=== PATIENT | male | born 1955 | race Caucasian/White ===

== ENCOUNTER 2017-12-13 18:04 | Observation (INO) | payer BC ==
[2017-12-13 18:28] LABS: ABS Basophils 0.1 10^3/ul (0-0.2); ABS Eosinophils 0.2 10^3/ul (0-0.6); ABS Lymphocytes 1.3 10^3/ul (1.0-4.8); ABS Monocytes 0.4 10^3/ul (0-0.8); ABS Neutrophils 2.5 10^3/ul (1.5-7.7); ABS Nucleated RBC 0 10^3/ul; Eosinophil % 5.4 % (0-6); Hematocrit 46 % (42-52); Hemoglobin 15.4 g/dl (14.0-18.0); Lymphocyte % 29.2 % (25-47); Mean Corpuscular HGB Conc 34 g/dl (31-36); Mean Corpuscular Hemoglobin 29 pg (27-31); Mean Corpuscular Volume 85 fL (80-94); Mean Platelet Volume 8.4 um3 (7.4-10.4); Nucleated Red Blood Cells % 0; Platelet Count 163 10^3/ul (150-450); Red Blood Count 5.42 10^6/ul (4.00-5.40); Red Cell Distribution Width 16 % (10.5-15); White Blood Count 4.5 10^3/ul (3.5-10.8)
[2017-12-13 18:50] LABS: EGFR Non-African American 47.7 (>60)
--- NOTE | 2017-12-13 20:39 | RAD ---
INDICATION: Chest pain COMPARISON: Chest x-ray March 24, 2003 TECHNIQUE: Single AP portable view of the chest was obtained. FINDINGS: Image quality is compromised due to the relative inferiority of a portable chest x-ray. The heart and mediastinum exhibit normal size and contour. The lungs are grossly clear. There is no evidence of a large pleural effusion. Visualized bones are normal for the patient's age. IMPRESSION: No radiographic evidence for acute cardiopulmonary abnormality on this portable chest x-ray.
--- NOTE | 2017-12-13 21:19 | ED ---
Deana Duarte Simon, scribed for Kera Dockery MD on 12/13/17 at 2116 . HPI Chest Pain - HPI Summary HPI Summary: This patient is a 62 year old M presenting to [facility] with a chief complaint of intermittent CP with exertion for the past 2-3 weeks, but noted worse sx today. Pt was push mowing his lawn at easy pace and experienced heavy pressure. He endorses similar but less severe sx while walking on weekend of 12/09/17 in [facility]. Pt denies any sx/endorses sx resolution at rest. Pt denies SOB, sweats, lightheaded, radiation during the episode. Pt denies any sx currently. PMHx [place] 2002; he had 1 stent placed in an artery with a 90 % blockage. In 2008 pt endorsed another stent placed, as well as an issue with 1st stent (tissue gathered around the original stent). Dr. Chavarria is pts vice president for instruction, who administered pts last stress test September 2016. Pt takes simvastatin, metoprolol , baby ASA (taken today), plavix, metforim, insulin. Pt denies any missed doses. Pt described sx of his 2002 VA as CP with radiations in waves down left arm. Patients medications reviewed this visit. - History of Current Complaint Chief Complaint: EDChestPainROMI Time Seen by Provider: 12/13/17 20:34 Hx Obtained From: Patient Onset/Duration: Started Hours Ago, Resolved Timing: Intermittent, Lasting Minutes Initial Severity: Moderate Current Severity: None Pain Intensity: 0 Pain Scale Used: 0-10 Numeric Chest Pain Location: Upper Sternal Chest Pain Radiates: No Character: Pressure/Squeezing Aggravating Factor(s): Exertion Alleviating Factor(s): Rest Associated Signs and Symptoms: Positive: Chest Pain. Negative: Shortness of Breath, Diaphoresis Related History: Similar Episode/Dx as: - exertion from walking weekend of . less severe - Allergy/Home Medications Allergies/Adverse Reactions: Allergies Allergy/AdvReac Type Severity Reaction Status Date / Time No Known Allergies Allergy Verified 12/13/17 18:16 Home Medications: Home Medications Aspirin EC TAB* [Ecotrin EC Low Dose 81 MG*] 81 mg PO QAM 12/13/17 [History Confirmed 12/13/17] Dapagliflozin Propanediol [Farxiga] 10 mg PO DAILY 12/13/17 [History Confirmed 12/13/17] Liraglutide (NF) [Victoza (NF)] 1.8 mg SUBCUT DAILY 12/13/17 [History Confirmed 12/13/17] Simvastatin (NF) [Zocor (NF)] 40 mg PO QPM 12/13/17 [History Confirmed 12/13/17] PMH/Surg Hx/FS Hx/Imm Hx Previously Healthy: Yes Endocrine/Hematology History: Reports: Hx Diabetes - TYPE II Cardiovascular History: Reports: Hx Coronary Artery Disease - HIGH CHOLESTEROL; 3 STENTS [id number], Hx Myocardial Infarction - 2002, Other Cardiovascular Problems/Disorders - [employer]ER[employer] - 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 MCCAIN Denies: Hx Hypertension, Hx Pacemaker/ICD History: Reports: Hx Kidney Stones - NONE IN THE 5-6 YEARS Denies: Hx Renal Disease Sensory History: Denies: Hx Contacts or Glasses, Hx Hearing Aid Opthamlomology History: Denies: Hx Contacts or Glasses EENT History: Denies: Hx Deafness Psychiatric History: Denies: Hx Panic Disorder - Surgical History Surgery Procedure, Year, and Place: 2002-- STENTS (CARDIAC) - [facility] IN [facility]. 2009- STENT(CARDIAC) [facility]. 2004 CYSTOSCOPY, LEFT RETROGRADE, URETEROSCOPY, LEFT CALCULUS MANIPULATION, STENT INSERTION, [facility]. 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 EOM intact and full ENT: Hearing grossly normal TM x 2 clear, mmoist, uvula midline, no exudate, no erythema Neck: Positive: Supple Respiratory: Positive: No respiratory distress, No accessory muscle use + CTA throughout no w/r Cardiovascular: RRR nl s1, s2 no m/r CBT <2 sec abd soft + BS nt/nd no guarding, no distension Musculoskeletal Exam: BORRERO x 4 without difficulty Strength Intact, ROM Intact Neurological: Positive: Alert, + sensation throughout Psychological: Positive: Normal Response To Family Skin: Positive: no rash, no ecchymosis Triage Information Reviewed: Yes Vital Signs On Initial Exam: Initial Vitals Temp Pulse Resp BP Pulse Ox 98.0 F 86 14 146/86 97 12/13/17 18:13 12/13/17 18:13 12/13/17 18:13 12/13/17 18:13 12/13/17 18:13 Diagnostics - Vital Signs Vital Signs Temp Pulse Resp BP Pulse Ox 12/13/17 18:13 98.0 F 86 14 146/86 97 - Laboratory Lab Results: Lab Results 12/13/17 12/13/17 12/13/17 Range/Units 18:23 18:23 18:23 WBC 4.5 (3.5-10.8) 10^3/ul RBC 5.42 H (4.00-5.40) 10^6/ul Hgb 15.4 (14.0-18.0) g/dl Hct 46 (42-52) % MCV 85 (80-94) fL MCH 29 (27-31) pg MCHC 34 (31-36) g/dl RDW 16 H (10.5-15) % Plt Count 163 (150-450) 10^3/ul MPV 8.4 (7.4-10.4) um3 Neut % (Auto) 55.1 (38-83) % Lymph % (Auto) 29.2 (25-47) % Henderson % (Auto) 9.1 H (0-7) % Eos % (Auto) 5.4 (0-6) % Baso % (Auto) 1.2 (0-2) % Absolute Neuts (auto) 2.5 (1.5-7.7) 10^3/ul Absolute Lymphs (auto) 1.3 (1.0-4.8) 10^3/ul Absolute Monos (auto) 0.4 (0-0.8) 10^3/ul Absolute Eos (auto) 0.2 (0-0.6) 10^3/ul Absolute Basos (auto) 0.1 (0-0.2) 10^3/ul Absolute Nucleated RBC 0 10^3/ul Nucleated RBC % 0 Sodium 136 (135-145) mmol/L Potassium 4.3 (3.5-5.0) mmol/L Chloride 102 (101-111) mmol/L Carbon Dioxide 24 (22-32) mmol/L Anion Gap 10 (2-11) mmol/L BUN 22 (6-24) mg/dL Creatinine 1.50 H (0.67-1.17) mg/dL Est GFR ( Amer) 57.8 (>60) Est GFR (Non-Af Amer) 47.7 (>60) BUN/Creatinine Ratio 14.7 (8-20) Glucose 326 H (70-100) mg/dL Lactic Acid 1.3 (0.5-2.0) mmol/L Calcium 9.6 (8.6-10.3) mg/dL Total Bilirubin 0.40 (0.2-1.0) mg/dL AST 23 (13-39) U/L ALT 15 (7-52) U/L Alkaline Phosphatase 83 (34-104) U/L Troponin I 0.01 (<0.04) ng/mL Total Protein 7.4 (6.4-8.9) g/dL Albumin 4.4 (3.2-5.2) g/dL Globulin 3.0 (2-4) g/dL Albumin/Globulin Ratio 1.5 (1-3) Result Diagrams: 12/15/17 05:39 12/15/17 05:39 Lab Statement: Any lab studies that have been ordered have been reviewed, and results considered in the medical decision making process. - Radiology CXR Xray Interpretation: No Acute Changes - No radiographic evidence for acute cardiopulmonary abnormality on this portable xray. Dr. Dockery has reviewed this radiographic report. Radiology Interpretation Completed By: Radiologist - EKG 1800 Cardiac Rate: NL - 82 EKG Rhythm: Sinus Rhythm EKG Interpretation: Inverted T-wave in leads III, AVF. No acute changes. EKG Comparison: No Significant Change Chest Pain Course/Dx - Course Course Of Treatment: Pt with 2 epsidoes od exertional chest pressure -resolved with rest. no current pain. once with walking, once with mowing lawn. no other syx - no nausea, sob, diaphoresis. pt with a h/o CAD with stent, htn, dm , chol. Last stress 09/2016. Pt took ASA. EKG without acute process. will check trop. if neg - admits for serial trop and cards. pt in agreement with plan - Diagnoses Provider Diagnoses: Exertional chest pain - Provider Notifications Discussed Care Of Patient With: Maty Ramos - Accepted admission Time Discussed With Above Provider: 21:05 Instructed by Provider To: Admit As Inpatient Discharge - Sign-Out/Discharge Documenting (check all that apply): Discharge/Admit/Transfer - Discharge Plan Condition: Stable Disposition: ADMITTED TO [facility] - Billing Disposition and Condition Condition: STABLE Disposition: Admitted to [facility] The documentation as recorded by the Deana bashir Simon accurately reflects the service I personally performed and the decisions made by , Kera Dockery MD.
[2017-12-13] MEDS ORDERED: Acetaminophen TAB* 325 MG PO PRN (21:47)
[2017-12-13] MEDS ORDERED: Ondansetron 40 MG VIAL* 2 MG/ML 20 ML VIAL IV PRN (21:47)
[2017-12-13] MEDS ORDERED: Morphine VIAL* 4 MG/ML VIAL (1 ml vial) IV PRN (21:47)
[2017-12-13] MEDS ORDERED: Al Hydrox/Mg Hydrox/Simet LIQ* 30 ML UDC PO PRN (21:47)
[2017-12-13] MEDS ORDERED: Magnesium Hydroxide LIQ* 30 ML UDC PO PRN (21:47)
[2017-12-13] MEDS ORDERED: Insulin GLARGINE(*) 1 UNITS UNIT SUBCUT SCH (22:00)
[2017-12-13] MEDS ORDERED: Dextrose 50% Syringe 50 ML* 25 GM/50 ML SYRINGE IV PUSH PRN (22:00)
[2017-12-13] MEDS: amLODIPine TAB* 5 MG PO SCH (22:13)
[2017-12-13] MEDS: Metoprolol Tartrate TAB* 25 MG PO SCH (22:13)
[2017-12-13] MEDS ORDERED: Nitroglycerin TAB 0.4 MG* 0.4 MG TAB SL PRN (22:32)
[2017-12-14] MEDS: Insulin LISPRO* 1 UNITS UNIT SUBCUT SCH ×3 (01:03→14:00)
[2017-12-14] MEDS: NS 0.9% 1000 ML* 1,000 ML IV SCH ×3 (01:04→21:53)
--- NOTE | 2017-12-14 04:58 | HP ---
CC: Dr. Robert Ron; Dr. Wili Nava; Dr. Alonso Madrigal * ADMISSION HISTORY AND PHYSICAL: DATE OF ADMISSION: 12/13/17 PATIENT OF: Dr. Maty Ramos* (DICTATED BY MAGGIE PIZANO) PRIMARY CARE PHYSICIAN: Dr. Robert Ron PRIMARY ROPE CUTTER: Dr. Wili Nava. CHIEF COMPLAINT: Chest pain. HISTORY OF PRESENT ILLNESS: Mr. Ruiz is a pleasant 62-year-old gentleman who carries past medical history significant for hypertension, hyperlipidemia, coronary artery disease, and type 2 diabetes mellitus, with a prior history of cardiac catheterization back in 2002 and 2009 with stent placement on both occasions, who presented to the emergency room earlier today with complaints of intermittent chest discomfort with exertion for the past few weeks. The patient described being in his usual state of health until the past few weeks when he experienced some chest tightness on and off, usually with exertion. He was mowing the grass the other day and noticed some left-sided chest pain with some numbness and tingling radiating to his left arm. He stopped and went inside for a little rest, and eventually the pain went away. He was on a tour bus last week in [facility] and he was walking around outdoors when he noticed increased chest tightness as well, again resolved at rest. He denied any shortness of breath, diaphoresis, lightheadedness, or any other associated symptoms. He was mowing his grass with a push mower and he was going at a very reasonable pace, and he was not rushing to finish it when he experienced some heavy pressure today. He took one tablet of Nitro and he noticed that pain eventually resolved. Given his significant history of coronary artery disease and his recurrent episodes of angina, we were asked to see the patient for further evaluation and to discuss possible admission to telemetry unit. During his ED visit today, patient had troponin of 0.01 initially. His EKG showed some inferior lead ST changes consistent with old infarct. I could not recall any old EKG at this time that was done at the cardiology office. He appeared to be comfortable at the time of admission. He has been maintained on aspirin, Plavix, and metoprolol since his initial cardiac catheterization back in 2002. In addition, he denies any headaches, blurred vision or any other associated symptoms. PAST MEDICAL HISTORY: Significant for: 1. Hypertension. 2. Coronary artery disease. 3. Diabetes mellitus type 2 for which he has been insulin-dependent, and he tells me that his last hemoglobin A1c check, which he is required to do at [facility] in [place], was 6.5. 4. Hyperlipidemia. PAST SURGICAL HISTORY: As mentioned above significant for: 1. Cardiac catheterization with two stents placed in 2002 at [place], [place], and another cardiac catheterization done in [place] in 2009 with two stents placed as well as. 2. Right hand ganglion cyst excision x2. CURRENT MEDICATIONS: His medications at home include: 1. Aspirin 81 mg p.o. q. daily. 2. Plavix 75 mg p.o. q. daily. 3. Farxiga 10 mg tablets p.o. q. daily. 4. Glipizide 10 mg p.o. b.i.d. 5. Lantus insulin 22 units subcu q. p.m. 6. Victoza 1.8 mg subcu q. daily. 7. Cozaar 50 mg p.o. q.h.s. 8. Metformin 2000 mg p.o. b.i.d. 9. Metoprolol 50 mg p.o. b.i.d. 10. Actos 30 mg p.o. q. daily. 11. Zocor 40 mg p.o. q.h.s. ALLERGIES: He has no known drug allergies. FAMILY HISTORY: Significant for diabetes mellitus, hypertension, and history of myocardial infarction in both his parents. 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 He has never smoked, and he denies alcohol intake. He denies illicit drug use. He is for the last 14 years. His son, Marquise, would be the healthcare proxy carrier; however, patient informed me that he does not have any paperwork to assign his son for such duty. He is a full code. REVIEW OF SYSTEMS: See HPI; otherwise, 14 points review of systems were reviewed and were essentially negative. PHYSICAL EXAMINATION GENERAL: He is an extremely pleasant, healthy-appearing, 62-year-old gentleman in no acute distress or discomfort at the time of admission. VITAL SIGNS: Revealed a blood pressure of 161/101, pulse 84, temperature 98.0, respirations 19, with O2 sat 99%. HEENT: Head is normocephalic, atraumatic. Sclerae anicteric, PERRLA, EOM's intact. Oropharynx is pink, moist, with no exudate. NECK: Supple. Trachea midline. No cervical adenopathy or thyromegaly. LUNGS: Clear to auscultation bilaterally. HEART: Regular rate and rhythm. Normal S1 and S2 without rubs, murmurs or gallops. BACK: Normal curvature, no CVA tenderness. ABDOMEN: Soft, nontender and nondistended. No hernias, masses or hepatosplenomegaly. EXTREMITIES: Without cyanosis, clubbing or edema. RECTAL: Exam deferred at this time. NEUROLOGIC: Grossly intact. DIAGNOSTIC STUDIES/LAB DATA: CBC with white count of 4500, hemoglobin 15.4, hematocrit 46, and platelets 163. Chemistry with sodium 136, potassium 4.3, chloride 102, CO2 of 24, BUN 22, and creatinine 1.5. His glucose elevated at 326, lactic acid 1.3. Troponin first draw at 6:23 p.m. is 0.01, second draw at 2113 is 0.04, and third draw is due shortly after midnight and not available at time of dictation. ACCESSORY DIAGNOSTIC DATA: Chest x-ray done, revealing no acute disease. EKG reviewed, revealing possible old infarct at the inferior leads. No other EKGs available at this time for comparison. ASSESSMENT: A 62-year-old gentleman with past medical history significant for coronary artery disease, who had two cardiac catheterizations with two stents placed both occasions, with also history of hypertension, diabetes mellitus, and hyperlipidemia who presented to the emergency room with intermittent anginal chest pain with exertion. ASSESSMENT AND PLAN: 1. Chest pain. The patient will be admitted for observation in the telemetry unit. We will obtain trending troponin and reevaluate him in the morning. I have discussed the case with Dr. Madrigal, the candlemaking laborer engineering production liaison, regarding the option of repeating his stress test tomorrow versus proceeding to the catheterization lab knowing his history of coronary artery disease. The patient is clinically stable, and he has experienced no chest pain since presentation to the emergency room. Recommendation from cardiology is to increase his metoprolol dose to 75 mg b.i.d., start him on Norvasc as well as at 2.5 mg q. daily, to hold his Plavix tonight, and keep him n.p.o. in anticipation for nuclear stress test tomorrow, and to discuss possible cardiac catheterization if indicated. I have discussed these plans with the patient who appears to be in agreement. 2. Hypertension. We will continue the patient on his metoprolol, start him on Norvasc given his hypertensive episode on admission, and also we will continue his losartan. 3. Diabetes mellitus. We will continue his coverage with Lantus for tonight, and the patient will be covered with sliding scale with glucose checks every 6 hours while he is n.p.o. I will hold his metformin and glipizide for the time being. 4. Hyperlipidemia. We will continue patient on simvastatin. 5. Coronary artery disease. The patient will be admitted to tele and need to rule out acute coronary syndrome. He will be closely monitored in a telemetry unit, we will continue his aspirin, and we will hold his Plavix tonight per cardiology for possible intervention tomorrow. 6. DVT prophylaxis. The patient is a moderate risk, and we will keep sequential stocking device on for now. 7. Code status. The patient is a full code. 8. Disposition. Observation admission to telemetry to rule out acute coronary syndrome. TIME SPENT: I spent approximately 60 minutes admitting this patient with more than 50% of the time spent taken history and performing physical exam. I have discussed the case with my attending, Dr. Ramos, who appears to be in agreement and we will plan on cardiac consultation in the morning and follow him up accordingly. MAGGIE PIZANO [id number]/[facility] #: [id number] [place]
--- NOTE | 2017-12-14 08:59 | PN ---
Subjective - Subjective Reason for Note: Progress Note History: I reviewed with Ruiz Ruiz his presentation and also read the history and physical prepared by MAGGIE Woodall. He has had central chest discomfort on mild exertion for a few weeks, this was particularly pronounced yesterday while he was mowing the lawn. He presented to the ED and was found to have a slightly elevated troponin I level. He has had x 2 cardiac catheterizations previously with stent placement. He has multiple risk factors for CAD. He states the pain doesn't radiate, it is not associated with nausea/vomiting or diaphoresis. He has had no associated shortness of breath, palpitations or edema. He has otherwise been well. His recent assessment at the [facility] showed the best A1c on record. He has had no symptoms overnight and telemetry has shown sinus rhythm Active Problems: Active Problems Angina of effort (Acute) I20.8 Coronary artery disease (Acute) I25.10 Essential hypertension (Acute) I10 History of coronary artery stent placement (Acute) Z95.5 Hypercholesterolemia (Acute) E78.00 Troponin I above reference range (Acute) R74.8 Type 2 diabetes mellitus (Acute) Current Medications: Current Medications Acetaminophen (Tylenol Tab*) 650 mg PO Q4H PRN PRN Reason: FEVER/PAIN Al Hydrox/Mg Hydrox/Simethicone (Maalox Plus*) 30 ml PO Q6H PRN PRN Reason: INDIGESTION Amlodipine Besylate (Norvasc Tab*) 2.5 mg PO DAILY [facility] Last Admin: 12/13/17 22:13 Dose: 2.5 mg Aspirin (Aspirin Ec Tab*) 81 mg PO QAM [facility] Atorvastatin Calcium (Lipitor*) 20 mg PO QPM [facility] Dextrose (D50w Syringe 50 Ml*) 12.5 gm IV PUSH .FOR FS < 60 - SS PRN PRN Reason: FS < 60 Sodium Chloride (Ns 0.9% 1000 Ml*) 1,000 mls @ 100 mls/hr IV PER RATE [facility] Last Admin: 12/14/17 01:04 Dose: 100 mls/hr Insulin Glargine (Lantus(*)) 22 units SUBCUT QPM [facility] Last Admin: 12/13/17 22:20 Dose: 22 unit Insulin Human Lispro (Humalog*) 0 units SUBCUT Q6HR [facility]; Protocol Last Admin: 12/14/17 06:05 Dose: Not Given Losartan Potassium (Cozaar Tab*) 50 mg PO QPM [facility] Magnesium Hydroxide (Milk Of Magnesia Liq*) 30 ml PO Q4H PRN PRN Reason: CONSTIPATION Metoprolol Tartrate (Lopressor Tab*) 75 mg PO BID [facility] Last Admin: 12/13/17 22:13 Dose: 75 mg Morphine Sulfate (Morphine Vial*) 2 mg IV Q4H PRN PRN Reason: PAIN Nitroglycerin (Nitroglycerin Tab 0.4 Mg*) 0.4 mg SL Q5M PRN PRN Reason: ANGINA Ondansetron HCl (Zofran 40 Mg Vial*) 4 mg IV Q4H PRN PRN Reason: NAUSEA/VOMITING Home Medications: Home Medications Medication Instructions Recorded Confirmed Type Clopidogrel TAB* [Plavix TAB*] 75 mg PO QPM 09/19/12 12/13/17 History Losartan TAB* [Cozaar TAB*] 50 mg PO QPM 09/19/12 12/13/17 History Metoprolol Tartrate TAB* 50 mg PO BID 09/19/12 12/13/17 History [Lopressor TAB*] glipiZIDE TAB* [Glucotrol TAB*] 10 mg PO BID 09/19/12 12/13/17 History metFORMIN* [Glucophage*] 2,000 mg PO BID 09/19/12 12/13/17 History Insulin Glargine,Hum.rec.anlog 22 unit SUBCUT QPM 04/01/16 12/13/17 History [Lantus] Pioglitazone TAB* [Actos TAB*] 30 mg PO QAM 04/01/16 12/13/17 History Aspirin EC TAB* [Ecotrin EC Low 81 mg PO QAM 12/13/17 12/13/17 History Dose 81 MG*] Dapagliflozin Propanediol [Farxiga] 10 mg PO DAILY 12/13/17 12/13/17 History Liraglutide (NF) [Victoza (NF)] 1.8 mg SUBCUT DAILY 12/13/17 12/13/17 History Simvastatin (NF) [Zocor (NF)] 40 mg PO QPM 12/13/17 12/13/17 History Allergies: Allergies Allergy/AdvReac Type Severity Reaction Status Date / Time No Known Allergies Allergy Verified 12/13/17 18:16 Objective - Vital Signs Vital Signs: Vital Signs 12/13/17 12/13/17 12/13/17 18:13 20:15 20:16 Temperature 98.0 F Pulse Rate 86 82 Respiratory 14 17 15 Rate Blood Pressure 146/86 161/94 (mmHg) O2 Sat by Pulse 97 99 Oximetry 12/13/17 12/13/17 12/13/17 20:31 21:00 21:01 Temperature Pulse Rate 75 77 80 Respiratory 6 15 19 Rate Blood Pressure 133/99 171/104 (mmHg) O2 Sat by Pulse 98 97 99 Oximetry 12/13/17 12/13/17 12/13/17 21:31 22:00 22:01 Temperature Pulse Rate 77 79 78 Respiratory 25 12 11 Rate Blood Pressure 161/101 152/96 (mmHg) O2 Sat by Pulse 96 96 95 Oximetry 12/13/17 12/13/17 12/14/17 22:31 22:56 00:51 Temperature 98.0 F 97.3 F Pulse Rate 81 74 71 Respiratory 19 18 16 Rate Blood Pressure 156/101 156/101 155/71 (mmHg) O2 Sat by Pulse 96 95 98 Oximetry 12/14/17 07:55 Temperature 98.5 F Pulse Rate 68 Respiratory 16 Rate Blood Pressure 107/68 (mmHg) O2 Sat by Pulse 98 Oximetry - Intake and Output Intake and Output: Intake & Output 12/11/17 12/12/17 12/13/17 12/14/17 11:59 11:59 11:59 11:59 Intake Total 0 Balance 0 Weight 210 lb 11.2 oz Intake: Oral 0 Other: # Bowel Movements 0 ADLs: Meal Record Start: 12/13/17 23: 33 Freq: DAILY@0900,1400,1800 Status: Active Protocol: Created 12/13/17 23:33 System (Rec: 12/13/17 23:33 System [id number]) Intake and Output Start: 12/13/17 18: 16 Freq: Status: Active Protocol: Created 12/13/17 18:16 System (Rec: 12/13/17 18:16 System [id number]) Intake and Output Start: 12/13/17 23: 33 Freq: DAILY@0600,1400,2200 Status: Active Protocol: Created 12/13/17 23:33 System (Rec: 06/20/18 23:33 System [email or web address]) Document 12/14/17 06:00 [id number] (Rec: 12/14/17 06:34 [id number]) - Physical Exam General Physical Exam Comment: warm and well perfused and in no acute distress. Foot examination - good self-care - no ulcers, callouses or infections General: No Cyanosis, No Anemia, No Jaundice, No Clubbing Endocrine: No Central Obesity, No Acromegaly, No Vitiligo, No Flushing, No Acanthosis nigricans, No Violaceious striae, No Dax Syndrome, No Buccal pigmenatation, No Melchor Crease Pigmentation Lungs and Chest: Yes: Chest Expansion Full, Chest Expansion Symetrica, Percussion Note Resonant, Vessicular Breath Sounds. No: Crackles, Wheezes Heart Rate and Rhythm: Regular JVP: Not Elevated Additional Cardiovascular: Yes: Normal Heart Sounds. No: Heart Murmur, Pedal Edema Abdominal Exam: Yes: Soft, Bowel Sounds Present. No: Distention, Abdominal Mass , Hepatomegaly, Abdominal Tenderness - Extremities Cranial Nerves II-XII Intact: Yes Limbs: Normal Power - Neuro Orientation: A/O x3 Speech: Normal Results - Results Lab Results: Laboratory Results - last 24 hr 12/13/17 12/13/17 12/13/17 18:23 18:23 18:23 WBC 4.5 RBC 5.42 H Hgb 15.4 Hct 46 MCV 85 MCH 29 MCHC 34 RDW 16 H Plt Count 163 MPV 8.4 Neut % (Auto) 55.1 Lymph % (Auto) 29.2 Humphreys % (Auto) 9.1 H Eos % (Auto) 5.4 Baso % (Auto) 1.2 Absolute Neuts (auto) 2.5 Absolute Lymphs (auto) 1.3 Absolute Monos (auto) 0.4 Absolute Eos (auto) 0.2 Absolute Basos (auto) 0.1 Absolute Nucleated RBC 0 Nucleated RBC % 0 Sodium 136 Potassium 4.3 Chloride 102 Carbon Dioxide 24 Anion Gap 10 BUN 22 Creatinine 1.50 H Est GFR ( Amer) 57.8 Est GFR (Non-Af Amer) 47.7 BUN/Creatinine Ratio 14.7 Glucose 326 H POC Glucose (mg/dL) Lactic Acid 1.3 Calcium 9.6 Total Bilirubin 0.40 AST 23 ALT 15 Alkaline Phosphatase 83 Troponin I 0.01 Total Protein 7.4 Albumin 4.4 Globulin 3.0 Albumin/Globulin Ratio 1.5 Triglycerides Cholesterol LDL Cholesterol HDL Cholesterol 12/13/17 12/14/17 12/14/17 21:13 00:34 00:45 WBC RBC Hgb Hct MCV MCH MCHC RDW Plt Count MPV Neut % (Auto) Lymph % (Auto) Humphreys % (Auto) Eos % (Auto) Baso % (Auto) Absolute Neuts (auto) Absolute Lymphs (auto) Absolute Monos (auto) Absolute Eos (auto) Absolute Basos (auto) Absolute Nucleated RBC Nucleated RBC % Sodium Potassium Chloride Carbon Dioxide Anion Gap BUN Creatinine Est GFR ( Amer) Est GFR (Non-Af Amer) BUN/Creatinine Ratio Glucose POC Glucose (mg/dL) 219 H Lactic Acid Calcium Total Bilirubin AST ALT Alkaline Phosphatase Troponin I 0.04 H* 0.07 H* Total Protein Albumin Globulin Albumin/Globulin Ratio Triglycerides Cholesterol LDL Cholesterol HDL Cholesterol 12/14/17 12/14/17 04:58 05:47 WBC RBC Hgb Hct MCV MCH MCHC RDW Plt Count MPV Neut % (Auto) Lymph % (Auto) Humphreys % (Auto) Eos % (Auto) Baso % (Auto) Absolute Neuts (auto) Absolute Lymphs (auto) Absolute Monos (auto) Absolute Eos (auto) Absolute Basos (auto) Absolute Nucleated RBC Nucleated RBC % Sodium Potassium Chloride Carbon Dioxide Anion Gap BUN Creatinine Est GFR ( Amer) Est GFR (Non-Af Amer) BUN/Creatinine Ratio Glucose POC Glucose (mg/dL) 109 H Lactic Acid Calcium Total Bilirubin AST ALT Alkaline Phosphatase Troponin I 0.07 H* Total Protein Albumin Globulin Albumin/Globulin Ratio Triglycerides 233 Cholesterol 125 LDL Cholesterol 54 HDL Cholesterol 24.9 Radiology Results: Patient Name: RUIZ RUIZ Medical Record#: [id number] Ordering Physician: Kera Dockery MD Acct.#: [id number] : 1955 Age: 62 Sex: M Location: EMERGENCY DEPARTMENT Exam Date: 12/13/171812 ADM Status: REG ER Order Information: CHEST AP PORTABLE Accession Number: [id number] CPT: 53967 INDICATION: Chest pain COMPARISON: Chest x-ray March 24, 2003 TECHNIQUE: Single AP portable view of the chest was obtained. FINDINGS: Image quality is compromised due to the relative inferiority of a portable chest x-ray. The heart and mediastinum exhibit normal size and contour. The lungs are grossly clear. There is no evidence of a large pleural effusion. Visualized bones are normal for the patient's age. IMPRESSION: No radiographic evidence for acute cardiopulmonary abnormality on this portable chest x-ray. <Electronically signed by Gil Lopez MD in OV> 12/13/172034 Dictated By: Gil Lopez MD Dictated Date/Time: 12/13/172034 Transcribed Date/Time: 12/13/172034 Copy to: CC:Robert Ron MD; Kera Dockery MD Imaging - [facility] Imaging - [place] [address] [facility] [address] [address] ph ([phone]) ph ([phone]) ph ([phone]) 1 of EKG Report: Rate 64 CO 171 QTc 450 QRS axis 14. Old IWMI. Assessment - Problem List Assessment: Patient Problems Angina of effort (Acute) Coronary artery disease (Acute) Essential hypertension (Acute) History of coronary artery stent placement (Acute) Hypercholesterolemia (Acute) Troponin I above reference range (Acute) Type 2 diabetes mellitus (Acute) Plan: Angina of effort (Acute)Coronary artery disease (Acute)Angina of effort (Acute) He gives a clear history of worsening angina pectoris. He has not had this at rest. His troponin I levels are mildly elevated. He requires further risk stratification with a stress test, but likely will have a cardiac catheterization as he provides such a clear history. He understands the process Essential hypertension (Acute) This was intially mildly elevated, now controlled Hypercholesterolemia (Acute) continue current Rx Type 2 diabetes mellitus (Acute) Continue usual treatment as covered by pharmacy - with some coverage as needed I discussed the above with the patient and he agrees with the management plan. We are awaiting his next troponin I measurement before he can have a stress test.
[2017-12-14] MEDS: Aspirin EC TAB* 81 MG TAB.EC PO SCH (09:43)
[2017-12-14] MEDS: amLODIPine TAB* 5 MG PO SCH (09:47)
[2017-12-14] MEDS ORDERED: Heparin DRIP 25,000 UNITS(*) 25,000 UNITS/500 ML BAG IV SCH (10:00)
[2017-12-14] MEDS: Heparin VIAL(*) 5000 UNITS/ML VIAL (FIVE THOUSAND) IV PRN ×2 (11:08→23:07)
[2017-12-14 11:28] LABS: ABS Basophils 0 10^3/ul (0-0.2); ABS Eosinophils 0.2 10^3/ul (0-0.6); ABS Lymphocytes 1.4 10^3/ul (1.0-4.8); ABS Monocytes 0.4 10^3/ul (0-0.8); ABS Neutrophils 2.9 10^3/ul (1.5-7.7); ABS Nucleated RBC 0 10^3/ul; Eosinophil % 4.3 % (0-6); Hematocrit 43 % (42-52); Hemoglobin 14.4 g/dl (14.0-18.0); Lymphocyte % 28.4 % (25-47); Mean Corpuscular HGB Conc 34 g/dl (31-36); Mean Corpuscular Hemoglobin 28 pg (27-31); Mean Corpuscular Volume 84 fL (80-94); Mean Platelet Volume 8.6 um3 (7.4-10.4); Nucleated Red Blood Cells % 0.1; Platelet Count 156 10^3/ul (150-450); Red Blood Count 5.07 10^6/ul (4.00-5.40); Red Cell Distribution Width 16 % (10.5-15)
[2017-12-14 11:36] LABS: EGFR Non-African American 56.8 (>60)
[2017-12-14] MEDS: Metoprolol Tartrate TAB* 25 MG PO SCH ×3 (12:19→20:46)
[2017-12-14] MEDS ORDERED: Clopidogrel TAB* 75 MG ONE (12:40)
--- NOTE | 2017-12-14 13:34 | RAD ---
INDICATION: Chest pain COMPARISON: None TECHNIQUE: . Rest images were acquired following the intravenous injection of 10.2 millicuries of technetium 99m tetrofosmin. Exercise stress images were acquired following the intravenous administration of 25.8 millicuries of technetium 99m tetrofosmin. The patient was exercised to a peak heart rate of 123 which is 77% of age predicted maximum. Given the low level of exercise tolerance, reversal ischemia may be underestimated. FINDINGS: There are no defects of the stress-induced or fixed nature. The cardiac chamber size is normal. There are no wall motion abnormalities. The ejection fraction is calculated at 53 percent during stress. IMPRESSION: NO ISCHEMIC DEFECT IS SEEN BUT THERE IS A LOW LEVEL OF EXERCISE TOLERANCE WHICH MAY AND REST MAY DISEASE. LOW-NORMAL EJECTION FRACTION. ASSESSMENT: LOW-RISK Based on imaging criteria from ACC/AHA 2002 Guideline Update for the Management of Patients With Chronic Stable Angina Table 23. Noninvasive Risk Stratification. Reference. HIGH-RISK (GREATER THAN 3% ANNUAL MORTALITY RATE) - Severe resting left ventricular dysfunction (LVEF < 35%) - Severe exercise left ventricular dysfunction (exercise LVEF < 35%) - Stress-induced large perfusion defect (particularly if anterior) - Stress-induced multiple perfusion defects of moderate size - Large, fixed perfusion defect with LV dilation or increased lung uptake (thallium-201) - Stress-induced moderate perfusion defect with LV dilation or increased lung uptake (thallium-201) INTERMEDIATE-RISK (1%-3% ANNUAL MORTALITY RATE) - Mild/moderate resting left ventricular dysfunction (LVEF = 35% to 49%) - Stress-induced moderate perfusion defect without LV dilation or increased lung intake (thallium-201) LOW-RISK (LESS THAN 1% ANNUAL MORTALITY RATE) - Normal or small myocardial perfusion defect at rest or with stress
--- NOTE | 2017-12-14 13:47 | PN ---
Hospitalist Progress Note Date of Service: 12/14/17 Patient's P[address] is Dr[address] Robert Ron who has seen the patient today. Will sign off.
--- NOTE | 2017-12-14 15:17 | ECHO ---
Patient: BRENDAN DANG Rec#: [id number] : 1955 Date: 12/14/2017 Age: 62y Height: 182.88 cm / 72.0 in Weight: 95.25 kg / 209.9 lbs Sex: M BSA: 2.17 Room#: 433 Admit Date#: 12/13/2017 Type: Inpatient Referring: Luis Fernando Mcwilliams MD Reading: Luis Fernando Mcwilliams MD Physical Therapy Resident: Alma Rascon,RDCS,RDMS CC: Robert Ron MD Transthoracic Echocardiogram Indication: CP BP: 121/74 HR: 73 Rhythm: NSR Findings History: CAD, PCI, HTN, HLD, DM Technical Comments: The study quality is good. Left Ventricle: The left ventricular chamber size is normal. Mild concentric left ventricular hypertrophy is observed. The estimated ejection fraction is 55-60%. Abnormal left ventricular diastolic filling is observed, consistent with impaired relaxation. Left Atrium: The left atrium is mildly dilated. Right Ventricle: The right ventricular chamber size and systolic function are within normal limits. The right ventricle wall thickness is mildly increased. Right Atrium: The right atrial cavity size is normal. Aortic Valve: The aortic valve is trileaflet. Systolic excursion of the aortic valve is normal. There is no evidence of aortic regurgitation. There is no evidence of aortic stenosis. Mitral Valve: The mitral valve leaflets appear normal. There is mild mitral regurgitation. There is no evidence of mitral stenosis. Tricuspid Valve: The tricuspid valve leaflets are normal. There is trace tricuspid regurgitation. Unable to estimate the right ventricular systolic pressure. Pulmonic Valve: There is no evidence of pulmonic valve thickening. There is a trace pulmonic regurgitation. Pericardium: There is no significant pericardial effusion. Aorta: There is borderline dilatation of the ascending aorta. There is no dilatation of the aortic arch. The aortic root is normal in size. Pulmonary Artery: The main pulmonary artery appears normal. Venous: The inferior vena cava is dilated. There is a greater than 50% respiratory change in the inferior vena cava dimension. Summary: There was not any prior study for comparison. Conclusions The left ventricular chamber size is normal. Mild concentric left ventricular hypertrophy is observed. The estimated ejection fraction is 55-60%, borderline basal septal hypokinesis. Abnormal left ventricular diastolic filling is observed, consistent with impaired relaxation. The left atrium is mildly dilated. There is mild mitral regurgitation. There is trace tricuspid regurgitation. Unable to estimate the right ventricular systolic pressure. There is borderline dilatation of the ascending aorta. Measurements Name Value Normal Range RVIDd (AP) 2D 2.5 cm (0.9 - 2.6) RVDdMajor (2D) 2.7 cm (2.2 - 4.4) RAd ISD 4CH 4.7 cm (3.4 - 4.9) RA (A4C)W 3.9 cm (2.9 - 4.6) IVSd (2D) 1.4 cm (0.6 - 1) LVPWd (2D) 1.2 cm (0.6 - 1) LVIDd (2D) 4 cm (3.6 - 5.4) LVIDs (2D) 2.4 cm - LV FS (2D) 40 % (25 - 45) Aortic Annulus 2.3 cm (1.4 - 2.6) Ao root diameter (2D) 3.4 cm (2.1 - 3.5) Ascending Ao 3.5 cm (2.1 - 3.4) Aortic arch 3.4 cm (1.8 - 3.4) LA dimension (AP) 2D 3.9 cm (2.3 - 3.8) LAd ISD 4CH 5.9 cm (2.9 - 5.3) LA ISD 4CH W 4.9 cm (2.5 - 4.5) Name Value Normal Range LA ESV SP 4CH (A/L) 72.38 ml - LA ESV SP 2CH (A/L) 77.18 ml - LA ESV BP (A/L) 78.08 ml - LA ESV BP (A/L) index 36 ml/m2 - LA ESV SP 4CH (MOD) 66.71 ml - LA ESV SP 2CH (MOD) 70.39 ml - Name Value Normal Range MV E-wave Vmax 0.7 m/sec - MV deceleration time 200 msec - MV A-wave Vmax 0.7 m/sec - MV E:A ratio 1 ratio - P. vein S-wave Vmax 0.4 m/sec - P. vein D-wave Vmax 0.3 m/sec - P. vein S:D Vmax ratio 1.2 ratio - P. vein A-wave duration 107 msec - LV septal e' Vmax 0.09 m/sec - LV lateral e' Vmax 0.1 m/sec - LV E:e' septal ratio 8 ratio - LV E:e' lateral ratio 7 ratio - Name Value Normal Range AV Vmax 1 m/sec - AV VTI 22 cm - AV peak gradient 4 mmHg - AV mean gradient 2 mmHg - LVOT Vmax 0.8 m/sec - LVOT VTI 18.3 cm - LVOT peak gradient 2.8 mmHg - LVOT mean gradient 1.5 mmHg - MARCIN Vmax 0.6 m/sec - Name Value Normal Range RAP 8 mmHg - IVC diameter 2.5 cm - Name Value Normal Range PV Vmax 0.8 m/sec - PV peak gradient 2.6 mmHg -
[2017-12-14] MEDS ORDERED: diPHENhydraMINE PO* 25 MG PO PRN (15:19)
[2017-12-14] MEDS ORDERED: Diazepam TAB(*) 5 MG PO PRN (15:19)
[2017-12-14] MEDS ORDERED: Insulin GLARGINE(*) 1 UNITS UNIT SUBCUT SCH ×2 (18:00)
[2017-12-14] MEDS ORDERED: Losartan TAB* 25 MG PO SCH (18:00)
[2017-12-14] MEDS ORDERED: Atorvastatin* 20 MG TAB PO SCH (18:00)
--- NOTE | 2017-12-14 21:18 | CONS ---
CC: Dr. Nava; Dr. Ron; Hospitalist Service; Dr. Mcwilliams.* CARDIOLOGY CONSULT: DATE OF CONSULT: 12/14/17 HISTORY OF PRESENT ILLNESS: I was asked by hospitalist service to see this 62- year- old male patient who presented to the hospital with symptoms of chest pain and found to have indeterminate borderline troponin peaked at 0.07. The patient with known significant history of severe coronary artery disease, history of myocardial infarction in 2002. At that time, he was found to have 90 % stenosis of the OM1 of the left circ and the RCA was occluded with a thrombus. He underwent stent to the proximal RCA 3 x 33 mm as well as to the distal RCA. He also had a stent to the OM of the left circ 2.5 x 28 mm Cypher stent. He had another cath in 2009. His left main was normal. His LAD had mid 40%. His left circ had ostial 50%. The stent was open and patent. His RCA proximal stent had 60% to 70% in-stent restenosis; however, the distal right coronary artery and PDA were without disease and the distal stent to the right coronary artery was open and patent. We are not sure if the patient underwent intervention for his proximal RCA. He said he did go to [facility]. I do not have records immediately available to me. For 2 to 3 weeks, the patient had some mild chest pain on exertion. He does not do regular exercise activity. He said yesterday, he was starting to do mowing and he started to have chest pain anteriorly in his chest. No jaw pain. No arm pain. He stopped mowing and he became chest pain free. He has been chest pain free actually since then. He decided to drive himself and he presented to the emergency room. Subsequently, he was hospitalized. He has been chest pain free as I indicated. He had troponins peaked at 0.07. He had no significant ST-T changes. Apparently, he had Q-waves inferiorly, I am assuming consistent with his old inferior wall myocardial infarction. He had no symptoms of shortness of breath, no jaw pain, no arm, no dizziness, no syncope, no palpitations, no tachycardia, no fever, no chills, no skin rash, no thrombus, no hematochezia, no nausea, no vomiting, no abdominal pain, no swelling of the lower extremities is appreciated. I just started actually heparin on him. He was continued on his outpatient medications. He does have a history of systemic arterial hypertension, diabetes mellitus and hyperlipidemia and very remote history of tobacco consumption. PAST MEDICAL HISTORY: As indicated above with a history of coronary artery disease, myocardial infarction, stenting to the RCA and left circ, hypertension , diabetes and hyperlipidemia. PAST SURGICAL HISTORY: Includes history of stenting to the RCA and left circ in the past. Cyst to the right index finger in the past. MEDICATIONS: His medications as an outpatient included: 1. Plavix 75 mg daily. 2. Simvastatin 40 mg daily. 3. Aspirin 81 mg daily. 4. Losartan 50 mg daily. 5. Glipizide 10 mg twice a day. 6. Metformin 2000 mg daily. 7. Metoprolol 50 mg twice a day. 8. Victoza adjusted daily. 9. Lantus 22 units daily. 10. Fish oil 3 caps 3 times daily. His medications as an inpatient include: 1. Tylenol 650 mg p.o. q.4 hours p.r.n. 2. Maalox p.r.n. 3. Norvasc 2.5 mg daily. 4. Aspirin 81 mg daily. 5. Lipitor 20 mg daily. 6. Heparin just started, adjusted to his PTT. 7. Lantus according to his blood sugar. 8. Cozaar 50 mg daily. 9. Lopressor 75 mg twice a day. ALLERGIES: He is allergic to LISINOPRIL. FAMILY HISTORY: He said both his parents had history of coronary artery disease. SOCIAL HISTORY: He is . He lives alone. He does have a history of smoking. He quit in 1984. He denies alcohol drinking. No history of illicit drug use. REVIEW OF SYSTEMS: His review of all other systems essentially is negative. PHYSICAL EXAM: He is awake, alert and oriented. He is not in acute distress. His vitals include a blood pressure is 107/68; pulse 68, in sinus rhythm; temperature 98.5 and respiratory rate 16. Head and Neck Exam: Normocephalic and atraumatic head. Ears, Nose and Throat: Essentially benign. Neck: Supple. JVP is not elevated. No carotid bruits. No masses in the neck are appreciated. Chest: Clear to auscultation. No rales, no wheezes. No added sounds are appreciated. Heart: Normal S1, S2. No added sounds. No gallops, no rubs. Abdomen: Benign. Positive bowel sounds. Extremities: No edema, no cyanosis, no clubbing. Skin exam is normal. Psych: Normal affect and mood. 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 DIAGNOSTIC STUDIES/LAB DATA: His EKG showed normal sinus rhythm. No acute ST- T changes. There are old Q-waves consistent with his old inferior wall VT. His labs showed white blood cell 4.5, hemoglobin 15.4, hematocrit 46 and platelets 163. His other labs showed his sodium 136, potassium 4.3, chloride 102, total CO2 of 24, BUN 22, creatinine 1.50. His sugar was 326. His troponins were peaked at 0.07. His total cholesterol 125. LDL 54, HDL 25, triglyceride 233. His LFTs were normal. His chest x-ray was reported to have no significant acute cardiopulmonary abnormality. IMPRESSION: The patient is a 62-year-old male patient with: 1. Presentation with symptoms of chest pain on exertion and indeterminate troponin, concerning for ischemic coronary artery disease in a patient who does have known history of severe coronary artery disease and intervention in the past. 2. History of old inferior wall myocardial infarction in 2002 with stents to the obtuse marginal of the left circumflex and right coronary artery. 3. History of in-stent restenosis to the proximal stent to the right coronary artery in 2009. 4. Systemic arterial hypertension. 5. Diabetes mellitus type 2, insulin dependent. 6. Hyperlipidemia. 7. Very remote history of tobacco consumption. 8. Family history of coronary artery disease. PLAN: Currently, the patient is chest pain free. His troponin peaked at 0.07. He had no acute ST-T changes of ST elevation or depression. He has been chest pain free since yesterday. I think at the present, I am agreeable for proceeding with a nuclear Myoview stress test. I think it will help us if he is truly abnormal of the anatomy, especially he had three-vessel disease in 2009 , LAD, left circ and RCA. He is to continue on his bet-venkata treatment, aspirin. I will resume his Plavix, which he was on as an outpatient. I just started heparin in light of his coronary artery disease, chest pain and borderline troponin. I will order transthoracic echo to evaluate his left ventricular systolic function and wall motion and any significant valvular disease, especially in the remote past he was described to have mitral insufficiency. I answered all of his concerns and questions up to his satisfaction. Any further recommendation is pending his clinical outcome. Thank you very much for asking us to participate in the care of this patient. [id number]/[facility] #: [id number] CHELSEY
[2017-12-15] MEDS ORDERED: NS 0.9% 1000 ML* 1,000 ML IV SCH ×2 (06:00→11:30)
[2017-12-15 06:10] LABS: ABS Basophils 0 10^3/ul (0-0.2); ABS Eosinophils 0.3 10^3/ul (0-0.6); ABS Lymphocytes 1.4 10^3/ul (1.0-4.8); ABS Monocytes 0.4 10^3/ul (0-0.8); ABS Neutrophils 2.1 10^3/ul (1.5-7.7); ABS Nucleated RBC 0 10^3/ul; Eosinophil % 7.1 % (0-6); Hematocrit 41 % (42-52); Hemoglobin 13.8 g/dl (14.0-18.0); Lymphocyte % 33.3 % (25-47); Mean Corpuscular HGB Conc 34 g/dl (31-36); Mean Corpuscular Hemoglobin 28 pg (27-31); Mean Corpuscular Volume 85 fL (80-94); Mean Platelet Volume 8.9 um3 (7.4-10.4); Nucleated Red Blood Cells % 0.1; Platelet Count 137 10^3/ul (150-450); Red Blood Count 4.84 10^6/ul (4.00-5.40); Red Cell Distribution Width 16 % (10.5-15); White Blood Count 4.3 10^3/ul (3.5-10.8)
[2017-12-15] MEDS: NS 0.9% 1000 ML* 1,000 ML IV SCH (06:38)
[2017-12-15] MEDS: Aspirin EC TAB* 81 MG TAB.EC PO SCH ×2 (06:38→10:20)
[2017-12-15 06:43] LABS: EGFR Non-African American 64.2 (>60)
[2017-12-15] MEDS ORDERED: Clopidogrel TAB* 75 MG PO SCH (06:45)
[2017-12-15] MEDS ORDERED: clonazePAM TAB(*) 0.5 MG PO PRN (07:34)
--- NOTE | 2017-12-15 07:34 | PN ---
Subjective - Subjective Reason for Note: Progress Note History: He developed central chest pain during the exercise stress test yesterday and he is due for a cardiac catheterization today. According to cardiology, the anatomy will determine the next steps, but with T2D it may be that he will require CABG. He is anxious and sleeping poorly. Otherwise, no other chest pain, dyspnea, palpitations. Active Problems: Active Problems Angina of effort (Acute) I20.8 Coronary artery disease (Acute) I25.10 Essential hypertension (Acute) I10 History of coronary artery stent placement (Acute) Z95.5 Hypercholesterolemia (Acute) E78.00 Troponin I above reference range (Acute) R74.8 Type 2 diabetes mellitus (Acute) Current Medications: Current Medications Acetaminophen (Tylenol Tab*) 650 mg PO Q4H PRN PRN Reason: FEVER/PAIN Al Hydrox/Mg Hydrox/Simethicone (Maalox Plus*) 30 ml PO Q6H PRN PRN Reason: INDIGESTION Amlodipine Besylate (Norvasc Tab*) 2.5 mg PO DAILY COUNTS INCLUDE 234 BEDS AT THE [facility] Last Admin: 12/14/17 09:47 Dose: 2.5 mg Aspirin (Aspirin Ec Tab*) 81 mg PO QAM COUNTS INCLUDE 234 BEDS AT THE [facility] Last Admin: 12/15/17 06:38 Dose: 81 mg Atorvastatin Calcium (Lipitor*) 20 mg PO QPM COUNTS INCLUDE 234 BEDS AT THE [facility] Last Admin: 12/14/17 17:48 Dose: 20 mg Clopidogrel Bisulfate (Plavix Tab*) 75 mg PO DAILY COUNTS INCLUDE 234 BEDS AT THE [facility] Last Admin: 12/15/17 06:38 Dose: 75 mg Dextrose (D50w Syringe 50 Ml*) 12.5 gm IV PUSH .FOR FS < 60 - SS PRN PRN Reason: FS < 60 Diazepam (Valium Tab(*)) 5 mg PO ONCE PRN PRN Reason: BANQUET SET UP PERSON TO MANAGER OF CUSTOMER 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 Stop: 12/15/17 15:18 Last Admin: 12/15/17 06:38 Dose: 5 mg Diphenhydramine HCl (Benadryl Po*) 25 mg PO ONCE PRN PRN Reason: BANQUET SET UP PERSON TO MANAGER OF CUSTOMER BILLING Stop: 12/15/17 15:18 Last Admin: 12/15/17 06:37 Dose: 25 mg Heparin Sodium (Porcine) (Heparin Vial(*)) 0 units IV .BOLUS PRN PRN Reason: PER PTT RESULT Last Admin: 12/14/17 23:07 Dose: 2,000 units Sodium Chloride (Ns 0.9% 1000 Ml*) 1,000 mls @ 100 mls/hr IV PER RATE COUNTS INCLUDE 234 BEDS AT THE [facility] Last Admin: 12/15/17 06:38 Dose: 100 mls/hr Heparin Sodium/Dextrose (Heparin Drip 25,000 Units(*)) 25,000 units in 500 mls @ 0 mls/hr IV PER RATE WILLIAM; Protocol Last Admin: 12/14/17 11:10 Dose: 20 mls/hr Sodium Chloride (Ns 0.9% 1000 Ml*) 1,000 mls @ 100 mls/hr IV .per rate WILLIAM Insulin Glargine (Lantus(*)) 18 units SUBCUT QPM COUNTS INCLUDE 234 BEDS AT THE [facility] Last Admin: 12/14/17 17:47 Dose: 18 units Losartan Potassium (Cozaar Tab*) 50 mg PO QPM COUNTS INCLUDE 234 BEDS AT THE [facility] Last Admin: 12/14/17 17:48 Dose: 50 mg Magnesium Hydroxide (Milk Of MagnHire Space Liq*) 30 ml PO Q4H PRN PRN Reason: CONSTIPATION Metoprolol Tartrate (Lopressor Tab*) 75 mg PO BID COUNTS INCLUDE 234 BEDS AT THE [facility] Last Admin: 12/14/17 20:46 Dose: 75 mg Morphine Sulfate (Morphine Vial*) 2 mg IV Q4H PRN PRN Reason: PAIN Nitroglycerin (Nitroglycerin Tab 0.4 Mg*) 0.4 mg SL Q5M PRN PRN Reason: ANGINA Ondansetron HCl (Zofran 40 Mg Vial*) 4 mg IV Q4H PRN PRN Reason: NAUSEA/VOMITING Home Medications: Home Medications Medication Instructions Recorded Confirmed Type Clopidogrel TAB* [Plavix TAB*] 75 mg PO QPM 09/19/12 12/13/17 History Losartan TAB* [Cozaar TAB*] 50 mg PO QPM 09/19/12 12/13/17 History Metoprolol Tartrate TAB* 50 mg PO BID 09/19/12 12/13/17 History [Lopressor TAB*] glipiZIDE TAB* [Glucotrol TAB*] 10 mg PO BID 09/19/12 12/13/17 History metFORMIN* [Glucophage*] 2,000 mg PO BID 09/19/12 12/13/17 History Insulin Glargine,Hum.rec.anlog 22 unit SUBCUT QPM 04/01/16 12/13/17 History [Lantus] Pioglitazone TAB* [Actos TAB*] 30 mg PO QAM 04/01/16 12/13/17 History Aspirin EC TAB* [Ecotrin EC Low 81 mg PO QAM 12/13/17 12/13/17 History Dose 81 MG*] Dapagliflozin Propanediol [Farxiga] 10 mg PO DAILY 12/13/17 12/13/17 History Liraglutide (NF) [Victoza (NF)] 1.8 mg SUBCUT DAILY 12/13/17 12/13/17 History Simvastatin (NF) [Zocor (NF)] 40 mg PO QPM 12/13/17 12/13/17 History Allergies: Allergies Allergy/AdvReac Type Severity Reaction Status Date / Time No Known Allergies Allergy Verified 12/13/17 18:16 Objective - Vital Signs Vital Signs: Vital Signs 12/14/17 12/14/17 12/14/17 07:55 08:43 13:31 Temperature 98.5 F 98.5 F Pulse Rate 68 72 70 Respiratory 16 18 Rate Blood Pressure 107/68 121/74 125/62 (mmHg) O2 Sat by Pulse 98 98 Oximetry 12/14/17 12/14/17 12/14/17 15:35 19:29 20:00 Temperature 98.8 F 98.3 F Pulse Rate 60 70 Respiratory 14 16 16 Rate Blood Pressure 114/62 132/57 (mmHg) O2 Sat by Pulse 98 98 Oximetry 12/14/17 12/15/17 12/15/17 23:16 03:16 06:37 Temperature 98.3 F 98.9 F Pulse Rate 63 60 Respiratory 20 20 20 Rate Blood Pressure 115/61 120/65 (mmHg) O2 Sat by Pulse 99 100 Oximetry 12/15/17 06:38 Temperature Pulse Rate Respiratory 20 Rate Blood Pressure (mmHg) O2 Sat by Pulse Oximetry - Intake and Output Intake and Output: Intake & Output 12/12/17 12/13/17 12/14/17 12/15/17 11:59 11:59 11:59 11:59 Intake Total 0 2360 Balance 0 2360 Weight 210 lb 11.2 oz Intake: IV Fluids 1980 Oral 0 380 Other: Estimated Void Medium # Bowel Movements 0 1 Estimated Stool Amount Medium # Voids 2 ADLs: Meal Record Start: 12/13/17 23: 33 Freq: DAILY@0900,1400,1800 Status: Active Protocol: Created 12/13/17 23:33 System (Rec: 12/13/17 23:33 System [email or web address]) Document 12/14/17 09:00 [id number] (Rec: 12/14/17 14:26 [id number]) Document 12/14/17 14:00 [id number] (Rec: 12/14/17 14:28 [id number] TELE-C01) Document 12/14/17 18:00 [id number] (Rec: 12/14/17 21:12 [id number] TELE-C10) Intake and Output Start: 12/13/17 18: 16 Freq: Status: Active Protocol: Created 12/13/17 18:16 System (Rec: 12/13/17 18:16 System [id number]) Intake and Output Start: 12/13/17 23: 33 Freq: DAILY@0600,1400,2200 Status: Active Protocol: Created 12/13/17 23:33 System (Rec: 12/13/17 23:33 System [email or web address]) Document 12/14/17 06:00 [id number] (Rec: 12/14/17 06:34 [id number] TELE-C34) Document 12/14/17 14:00 [id number] (Rec: 12/14/17 14:28 [id number] TELE-C01) Document 12/14/17 21:42 [id number] (Rec: 12/14/17 21:43 [id number] TELE-C10) Document 12/15/17 06:00 [id number] (Rec: 12/15/17 06:02 [id number] TELE-C34) - Physical Exam General Physical Exam Comment: anxious General: No Cyanosis, No Anemia, No Jaundice, No Clubbing Lungs and Chest: Yes: Chest Expansion Full, Chest Expansion Symetrica, Percussion Note Resonant, Vessicular Breath Sounds. No: Crackles, Wheezes, Respiratory Distress, Use of Accessory Muscles Heart Rate and Rhythm: Regular JVP: Not Elevated Additional Cardiovascular: Yes: Normal Heart Sounds. No: Heart Murmur, Pedal Edema Abdominal Exam: Yes: Soft. No: Distention, Abdominal Tenderness Results - Results Lab Results: Laboratory Results - last 24 hr 12/14/17 12/14/17 12/14/17 08:34 10:40 10:40 WBC 5.0 RBC 5.07 Hgb 14.4 Hct 43 MCV 84 MCH 28 MCHC 34 RDW 16 H Plt Count 156 MPV 8.6 Neut % (Auto) 57.8 Lymph % (Auto) 28.4 Lassen % (Auto) 8.8 H Eos % (Auto) 4.3 Baso % (Auto) 0.7 Absolute Neuts (auto) 2.9 Absolute Lymphs (auto) 1.4 Absolute Monos (auto) 0.4 Absolute Eos (auto) 0.2 Absolute Basos (auto) 0 Absolute Nucleated RBC 0 Nucleated RBC % 0.1 APTT 33.2 BUN Creatinine Est GFR ( Amer) Est GFR (Non-Af Amer) POC Glucose (mg/dL) Troponin I 0.06 H* 12/14/17 12/14/17 12/14/17 10:40 13:42 15:21 WBC RBC Hgb Hct MCV MCH MCHC RDW Plt Count MPV Neut % (Auto) Lymph % (Auto) Lassen % (Auto) Eos % (Auto) Baso % (Auto) Absolute Neuts (auto) Absolute Lymphs (auto) Absolute Monos (auto) Absolute Eos (auto) Absolute Basos (auto) Absolute Nucleated RBC Nucleated RBC % APTT 75.5 H BUN 19 Creatinine 1.29 H Est GFR ( Amer) 68.7 Est GFR (Non-Af Amer) 56.8 POC Glucose (mg/dL) 138 H Troponin I 12/14/17 12/14/17 12/14/17 17:47 22:21 23:37 WBC RBC Hgb Hct MCV MCH MCHC RDW Plt Count MPV Neut % (Auto) Lymph % (Auto) Lassen % (Auto) Eos % (Auto) Baso % (Auto) Absolute Neuts (auto) Absolute Lymphs (auto) Absolute Monos (auto) Absolute Eos (auto) Absolute Basos (auto) Absolute Nucleated RBC Nucleated RBC % APTT 46.1 H BUN Creatinine Est GFR ( Amer) Est GFR (Non-Af Amer) POC Glucose (mg/dL) 211 H 226 H Troponin I 12/15/17 12/15/17 12/15/17 05:39 05:39 05:39 WBC 4.3 RBC 4.84 Hgb 13.8 L Hct 41 L MCV 85 MCH 28 MCHC 34 RDW 16 H Plt Count 137 L MPV 8.9 Neut % (Auto) 49.6 Lymph % (Auto) 33.3 Lassen % (Auto) 9.1 H Eos % (Auto) 7.1 H Baso % (Auto) 0.9 Absolute Neuts (auto) 2.1 Absolute Lymphs (auto) 1.4 Absolute Monos (auto) 0.4 Absolute Eos (auto) 0.3 Absolute Basos (auto) 0 Absolute Nucleated RBC 0 Nucleated RBC % 0.1 APTT 68.6 H BUN 18 Creatinine 1.16 Est GFR ( Amer) 77.7 Est GFR (Non-Af Amer) 64.2 POC Glucose (mg/dL) Troponin I Assessment - Problem List Assessment: Patient Problems Angina of effort (Acute) Coronary artery disease (Acute) Essential hypertension (Acute) History of coronary artery stent placement (Acute) Hypercholesterolemia (Acute) Troponin I above reference range (Acute) Type 2 diabetes mellitus (Acute) Plan: He is due for a cardiac catheterization today. Dr. Soto will decide upon management - conservative therapy, stenting or CABG. His glucose is running high - this is likely stress related. I will correct this after his procedure. I will treat his anxiety with clonazepam and temazepam. I discussed the above with the patient and the likely outcomes of the cardiac catheterization.
[2017-12-15] MEDS ORDERED: Temazepam CAP* 15 MG PO PRN (07:35)
[2017-12-15 08:32] VITALS: BP 109/67
[2017-12-15] MEDS ORDERED: Heparin(*) 1000 UNIT/ML 10 ML VIAL CATH LAB IV ONE (10:05)
[2017-12-15] MEDS ORDERED: VERAPAMIL 2.5 MG/ML 2 ML VIAL ** 5 mg/2 ml ONE ×2 (10:05→10:16)
[2017-12-15] MEDS ORDERED: Iodixanol* (CONTRAST) 320 MG/ML 100 ML SDV ONE (10:06)
[2017-12-15] MEDS ORDERED: Lidocaine 1% INJ* 10 MG/ML 30 ML SDV ONE (10:06)
[2017-12-15] MEDS ORDERED: nitroGLYCERIN DRIP* 25,000 MCG/250 ML BTL ONE (10:06)
[2017-12-15] MEDS ORDERED: Heparin 2 UNITS/ML IVPREMIX* 2,000 ML IV ONE (10:06)
[2017-12-15] MEDS ORDERED: fentaNYL* 50 MCG/ML 5 ML VIAL (250 MCG VIAL) ONE (10:26)
[2017-12-15] MEDS ORDERED: Midazolam* 1 MG/ML 10 ML VIAL (10 MG) ONE (10:26)
[2017-12-15] MEDS ORDERED: fentaNYL* 50 MCG/ML 2 ML VIAL (100 MCG VIAL) ONE (10:30)
--- NOTE | 2017-12-16 05:38 | CATH ---
CC: Robert Ron MD; Wili Nava MD; Dr. Nilton Marsh, Department of Cardiovascular Surgery at [facility] at [facility] * CARDIAC CATHETERIZATION: DATE OF PROCEDURE: 12/15/17 - ROOM #433 INDICATION FOR THE PROCEDURE: The patient with progressive angina pectoris with markedly abnormal stress test with ST segment and chest discomfort occurring at a low work load. Of note, nuclear images were recently reported as normal, but reviewing them myself, there was reversible ischemia to the apical region, as well as the mid posterior wall and there was transient ischemic dilation suggesting the presence of multi-vessel disease. PROCEDURE: Coronary arteriography, left heart catheterization, left ventriculography. The approach utilized: Right radial artery. CONTINUATION ADDENDUM: EQUIPMENT UTILIZED: 1. The right radial artery sheath was a 6-Honduran Glidesheath. 2. Diagnostic coronary catheter with a 5-Honduran TIG4 curved diagnostic catheter. 3. The exchange wire was a Terry curved guidewire, 260 cm long. 4. Left heart catheterization catheter was a 5-Honduran PIG Performa radial. MEDICATIONS GIVEN: The patient had already received his aspirin and clopidogrel on the floor of the hospital. In the cardiac cath lab tech, he came down also with a heparin drip at 1000 units an hour. He received a radial artery cocktail of 3 mg of verapamil and 300 mcg of nitroglycerin administered intra-atrial. The patient also received 2000 units additional heparin therapy intravenously after the wire traversed the arch into the ascending aorta. DESCRIPTION OF PROCEDURE: The patient was brought in to the cardiac catheterization laboratory and a formal time-out was performed. He was prepped and draped in a sterile fashion. The right radial artery area was anesthetized with 1% lidocaine. The right radial artery was cannulated and a sheath was placed and the radial artery cocktail was given. The diagnostic catheter was advanced to the ascending aorta and the extra heparin was given. Coronary arteriography was performed. Following this, the catheter was exchanged for a pigtail catheter and central aortic pressure was recorded followed by left ventricular pressure and left ventriculography performed in the SANCHEZ projection utilizing a total of 24 cc of Visipaque dye at a rate of 12 cc per second. The catheter was then pulled back across the aortic valve to recheck gradient. At the end of the case, the catheter and sheath were removed, and hemostasis was obtained with a Vasc Band. The total contrast used was 74 cc of Visipaque dye. The radiation exposure included 5.9 minutes of fluoro time. The air kerma radiation was 1035 mGy. The DAP radiation was 6185 microgray/m2. RESULTS: HEMODYNAMIC DATA: Left heart catheterization - central aortic pressure recorded at 114/62 with a mean of 85. Left ventricular pressure 119 over the left ventricular end- diastolic pressure of 21. LEFT VENTRICULOGRAPHY: Performed in the SANCHEZ projection revealed moderate proximal inferior wall hypokinesis involving a small area with preservation of the rest of the ventricle. The overall ejection fraction was estimated at 55% to 60%. There was no mitral regurgitation identified. CORONARY ARTERIOGRAPHY: A. Left coronary artery: 1. Left main - there was tapering of the distal left main with a narrowing of approximately 75% to 80% in its worst view. 2. Left anterior descending artery - the ostium of the left anterior descending artery had a significant 75% stenosis seen. Past this point, it gave off a posteriorly directed diagonal branch, which was somewhat narrow in caliber, but appeared to have ostial narrowing of 45% to 50%. This was followed immediately by bifurcating diagonal branch. The diagonal branch had disease in its proximal segments with an area of narrowing noted to be as much as 60% to 65%. The continuation of the LAD just after this point had a narrowing of 65% in the AP cranial projection. 3. Circumflex artery - a nondominant vessel supplied 1 obtuse marginal branch. There was a prior stent in its mid segment. The ostium of the circumflex had a significant narrowing of as much as 75%. There was mild to moderate in-stent restenosis followed by diffuse by a significant 95% stenosis after the stent. The distal portion of this vessel appeared to be small in caliber, but may be larger on the basis of hypoperfusion from a critical lesion. B. Right coronary artery - a dominant vessel supplying the PDA and posterior left ventricular branch. There were multiple stents noted in the mid segment of this vessel. The stented area appeared to be widely patent and past this point, there was no significant stenosis. Just prior to the area of the stent, there is a narrowing noted to be approximately 65% to 70% in the mid segment. OVERALL ASSESSMENT: Multivessel disease with critical left main as well as ostial LAD as well as a borderline significant lesion in the proximal to mid LAD after the take off of the first 2 diagonal branches. The larger of the 2 diagonal branches appeared to have moderate significant lesion in its proximal portion as well. The circumflex had a significant ostial stenosis as well as a critical high- grade stenosis after the stent in the mid segment of the obtuse marginal branch. The caliber of the vessel is small in nature. It may be larger, appearing smaller due to hypoperfusion due to critical lesion. Ideally, bypass to the LAD, diagonal branch, obtuse marginal branch as well as right coronary artery and perhaps even the other diagonal branch should be pursued. That will be under decision of Dr. Nilton Marsh for which the patient is being transferred up to [facility] at Dr. Mcwilliams's recommendation ( Dr. Mcwilliams is the primary director cloud transformation in the hospital on the case). Of note , the patient has been on clopidogrel and therefore, surgery will have to be delayed until Dr. Marsh feels it is safe enough to proceed after clopidogrel has been held. [id number]/[facility] #: [id number]/[facility]PS #: [id number] [facility]
--- NOTE | 2017-12-16 05:56 | TRS ---
CC: Dr. Valdemar Marsh; Dr. Nava; Dr. Robert Ron * TRANSFER SUMMARY: DATE OF ADMISSION: 12/13/17 DATE OF TRANSFER: 12/15/17 TRANSFERRED TO: [facility]. ACCEPTING PHYSICIAN: Dr. Valdemar Marsh, cardiothoracic surgeon. Please refer to a full history and physical by hospitalist service on 12/13/17. Please refer to a full cardiology consult done by Dr. Mcwilliams on 12/14/17. TRANSFER DIAGNOSES: 1. Status post cardiac catheterization by Dr. Soto, 12/15/17. Please refer to a full cardiac cath report and found out that the patient has significant distal left main disease and severe multivessel coronary artery disease. 2. The patient needs complete revascularization by coronary artery bypass graft. 3. Normal left ventricular systolic function. 4. Severe coronary artery disease with multiple intervention with angioplasty and stenting from the past. 5. Systemic arterial hypertension. 6. Diabetes mellitus. 7. Hyperlipidemia. 8. Very remote history of tobacco consumption. HOSPITAL COURSE: In summary, the patient is a 62-year-old male patient who does have known history of myocardial infarction in 2002, known history of severe coronary artery disease, multiple intervention stenting of the left circ and of the right coronary artery, last one was in 2009 at [facility]. The patient presented with a progressive symptoms of chest pain and had borderline troponins peaked at 0.07. He underwent nuclear Myoview stress test. He was very symptomatic on the treadmill with just being that needed test to be actually aborted. He had significant ST depression abnormalities 3 to 4 mm leads inferiorly and laterally. His nuclear Myoview stress test, although it was reported to be low risk, but there was area of reversible ischemia of the apex and the TID was elevated. Given his known severe CAD, symptoms of chest pain and a troponin and significantly abnormal stress test, he was referred for a cardiac catheterization, which was done by Dr. Soto today on 12/15/17, which showed significant distal left main disease and severe multivessel coronary artery disease. The patient continues to be hemodynamically stable. He is chest pain free. Dr. Quezada, myself and Dr. Soto discussed the case with him via phone, who kindly accepted the patient for transfer today for complete revascularization by coronary artery bypass grafting. The patient will be transferred today with ambulance and ACLS protocol. His Plavix will be held, which Dr. Quezada made aware of this. He is hemodynamically stable for transfer. His most recent labs from 12/15/17, white blood cell 4.3, hemoglobin 13.8, hematocrit 41 and platelets 137. His chemistry from 12/14/17, sodium 136, potassium 4.3, chloride 102, BUN 22, creatinine 1.50. His sugar was 326 on the 12/13/17. Troponin peaked at 0.07. Triglycerides 233, cholesterol 125, LDL 54, HDL 25. His EKG showed sinus rhythm and old inferior wall myocardial infarction. His echocardiogram showed normal left ventricular systolic function, which was done on 12/14/17 and EF 55 % to 60% and mild mitral insufficiency, trace tricuspid insufficiency. I discussed this with the patient. I answered all his concerns and questions up to his satisfaction. Dr. Soto left a message for Dr. Robert Ron to make him aware of the patient's clinical condition. TIME SPENT: Total time taking care of this patient, making arrangement for transfer and decision making is more than 30 minutes. [id number]/[facility] #: [id number] MTDD
--- NOTE | 2017-12-16 07:27 | CATH ---
ADDM NOW ON MAIN RPT CC: Robert Ron MD; Wili Nava MD; Dr. Nilton Marsh, Department of Cardiovascular Surgery at [facility] at [facility] CARDIAC CATHETERIZATION REPORT: ADDENDUM: EQUIPMENT UTILIZED: 1. The right radial artery sheath was a 6-Cameroonian Glidesheath. 2. Diagnostic coronary catheter with a 5-Cameroonian TIG4 curved diagnostic catheter. 3. The exchange wire was a Terry curved guidewire, 260 cm long. 4. Left heart catheterization catheter was a 5-Cameroonian PIG Performa radial. MEDICATIONS GIVEN: The patient had already received his aspirin and clopidogrel on the floor of the hospital. In the cardiac supervisor dental laboratory, he came down also with a heparin drip at 1000 units an hour. He received a radial artery cocktail of 3 mg of verapamil and 300 mcg of nitroglycerin administered intra-atrial. The patient also received 2000 units additional heparin therapy intravenously after the wire traversed the arch into the ascending aorta. DESCRIPTION OF PROCEDURE: The patient was brought in to the cardiac catheterization laboratory and a formal time-out was performed. He was prepped and draped in a sterile fashion. The right radial artery area was anesthetized with 1% lidocaine. The right radial artery was cannulated and a sheath was placed and the radial artery cocktail was given. The diagnostic catheter was advanced to the ascending aorta and the extra heparin was given. Coronary arteriography was performed. Following this, the catheter was exchanged for a pigtail catheter and central aortic pressure was recorded followed by left ventricular pressure and left ventriculography performed in the SANCHEZ projection utilizing a total of 24 cc of Visipaque dye at a rate of 12 cc per second. The catheter was then pulled back across the aortic valve to recheck gradient. At the end of the case, the catheter and sheath were removed, and hemostasis was obtained with a Vasc Band. The total contrast used was 74 cc of Visipaque dye. The radiation exposure included 5.9 minutes of fluoro time. The air kerma radiation was 1035 mGy. The DAP radiation was 6185 microgray/m2. RESULTS: HEMODYNAMIC DATA: Left heart catheterization - central aortic pressure recorded at 114/62 with a mean of 85. Left ventricular pressure 119 over the left ventricular end- diastolic pressure of 21. LEFT VENTRICULOGRAPHY: Performed in the SACNHEZ projection revealed moderate proximal inferior wall hypokinesis involving a small area with preservation of the rest of the ventricle. The overall ejection fraction was estimated at 55% to 60%. There was no mitral regurgitation identified. CORONARY ARTERIOGRAPHY: A. Left coronary artery: 1. Left main - there was tapering of the distal left main with a narrowing of approximately 75% to 80% in its worst view. 2. Left anterior descending artery - the ostium of the left anterior descending artery had a significant 75% stenosis seen. Past this point, it gave off a posteriorly directed diagonal branch, which was somewhat narrow in caliber, but appeared to have ostial narrowing of 45% to 50%. This was followed immediately by bifurcating diagonal branch. The diagonal branch had disease in its proximal segments with an area of narrowing noted to be as much as 60% to 65%. The continuation of the LAD just after this point had a narrowing of 65% in the AP cranial projection. 3. Circumflex artery - a nondominant vessel supplied 1 obtuse marginal branch. There was a prior stent in its mid segment. The ostium of the circumflex had a significant narrowing of as much as 75%. There was mild to moderate in-stent restenosis followed by diffuse by a significant 95% stenosis after the stent. The distal portion of this vessel appeared to be small in caliber, but may be larger on the basis of hypoperfusion from a critical lesion. B. Right coronary artery - a dominant vessel supplying the PDA and posterior left ventricular branch. There were multiple stents noted in the mid segment of this vessel. The stented area appeared to be widely patent and past this point, there was no significant stenosis. Just prior to the area of the stent, there is a narrowing noted to be approximately 65% to 70% in the mid segment. OVERALL ASSESSMENT: Multivessel disease with critical left main as well as ostial LAD as well as a borderline significant lesion in the proximal to mid LAD after the take off of the first 2 diagonal branches. The larger of the 2 diagonal branches appeared to have moderate significant lesion in its proximal portion as well. The circumflex had a significant ostial stenosis as well as a critical high- grade stenosis after the stent in the mid segment of the obtuse marginal branch. The caliber of the vessel is small in nature. It may be larger, appearing smaller due to hypoperfusion due to critical lesion. Ideally, bypass to the LAD, diagonal branch, obtuse marginal branch as well as right coronary artery and perhaps even the other diagonal branch should be pursued. That will be under decision of Dr. Nilton Marsh for which the patient is being transferred up to [facility] at Dr. Mcwilliams's recommendation ( Dr. Mcwilliams is the primary concentrator operator in the hospital on the case). Of note , the patient has been on clopidogrel and therefore, surgery will have to be delayed until Dr. Marsh feels it is safe enough to proceed after clopidogrel has been held. [id number]/[facility] #: [id number] [facility]
== END 2017-12-15 12:00 | disposition short-term general hospital (02) | DRG 192 ==
LOC: ED 18:04 → MEDTELE 21:47 → INTOOBSV 12-15 10:24 → OBSVTOIN 12-15 10:24 → UNDODISIN 12-15 12:00
PROVIDERS: ADMIT Pediatrics; ATTEND Internal Medicine Cardiovascular Disease
PROC: 4A023N7 Measurement of Cardiac Sampling and Pressure, Left Heart, Percutaneous Approach (ICD-10-PCS; 2017-12-15)
PROC: B2151ZZ Fluoroscopy of Left Heart using Low Osmolar Contrast (ICD-10-PCS; 2017-12-15)
PROC: B2111ZZ Fluoroscopy of Multiple Coronary Arteries using Low Osmolar Contrast (ICD-10-PCS; principal; 2017-12-15 09:00)
DX: I25.119 Atherosclerotic heart disease of native coronary artery with unspecified angina pectoris (principal); T82.855A Stenosis of coronary artery stent, initial encounter; E11.9 Type 2 diabetes mellitus without complications; I25.10 Atherosclerotic heart disease of native coronary artery without angina pectoris; Z96.0 Presence of urogenital implants; E78.00 Pure hypercholesterolemia, unspecified; I08.1 Rheumatic disorders of both mitral and tricuspid valves; Y71.3 Surgical instruments, materials and cardiovascular devices (including sutures) associated with adverse incidents; Y92.9 Unspecified place or not applicable; Z95.5 Presence of coronary angioplasty implant and graft; I25.2 Old myocardial infarction; Z87.442 Personal history of urinary calculi; Z82.49 Family history of ischemic heart disease and other diseases of the circulatory system; Z83.3 Family history of diabetes mellitus; Z87.891 Personal history of nicotine dependence; Z72.89 Other problems related to lifestyle
CPT/HCPCS: 36415; 71045; 76937; 78452; 80053; 80061; 82565; 83605; 84484; 84520; 85025; 85730; 93005; 93017; 93306; 93458; 99284; A9270-GY; A9502; G0378; J1644; J2250; J3010

== ENCOUNTER 2017-12-26 10:48 | Emergency (ER) | payer BC ==
[2017-12-26] MEDS ORDERED: Metoprolol Tartrate IV* 1 MG/ML 5 ML VIAL IV ONE (11:17)
[2017-12-26 11:45] VITALS: BP 118/74
[2017-12-26 11:49] LABS: ABS Basophils 0 10^3/ul (0-0.2); ABS Eosinophils 0.1 10^3/ul (0-0.6); ABS Lymphocytes 0.7 10^3/ul (1.0-4.8); ABS Monocytes 0.7 10^3/ul (0-0.8); ABS Neutrophils 5.9 10^3/ul (1.5-7.7); ABS Nucleated RBC 0 10^3/ul; Eosinophil % 1.8 % (0-6); Hematocrit 31 % (42-52); Hemoglobin 10.2 g/dl (14.0-18.0); Lymphocyte % 9.7 % (25-47); Mean Corpuscular HGB Conc 33 g/dl (31-36); Mean Corpuscular Hemoglobin 28 pg (27-31); Mean Corpuscular Volume 84 fL (80-94); Mean Platelet Volume 8.2 um3 (7.4-10.4); Nucleated Red Blood Cells % 0; Platelet Count 270 10^3/ul (150-450); Red Blood Count 3.64 10^6/ul (4.00-5.40); Red Cell Distribution Width 16 % (10.5-15); White Blood Count 7.5 10^3/ul (3.5-10.8)
[2017-12-26 12:16] LABS: INR 1.06 (0.77-1.02)
[2017-12-26 12:18] LABS: EGFR Non-African American 54.8 (>60)
[2017-12-26] MEDS ORDERED: NS 0.9% 500 ML* 500 ML IV ONE (12:47)
[2017-12-26] MEDS ORDERED: Perflutren Lipid Microsphere* 3 ML VIAL ONE (12:48)
--- NOTE | 2017-12-26 14:06 | ED ---
Liban Duarte Angela, scribed for Carlos Webster MD on 12/26/17 at 1114 . Palpitations / Dysrhythmia - HPI Summary HPI Summary: This pt is a 62 y/o male presenting to [facility] for elevated heart rate of 209 today. Pt reports he had CABG done 6 days ago (on 12/20/17) at [facility]. Today he states he went to the bathroom and then to the refrigerator when his visiting nurse arrived. Pt reports he felt like he exerted himself a little bit more than he should have. Visiting nurse took his pulse and he was found to have a heart rate of 209. Pt notes feeling mildly clammy and diaphoretic. Pt states he felt stressed for about 1 hour prior to getting his heart rate checked. Denies chest pain, palpitations, fluttering, SOB. His systems support officer is Dr. Nava. Pt is currently on oxycodone, Losartan, metoprolol, aspirin, plavix. - History of Current Complaint Chief Complaint: EDDysrhythmPalp Time Seen by Provider: 12/26/17 11:01 Hx Obtained From: Patient Onset/Duration: Sudden Onset, Resolved Severity Initially: Severe Severity Currently: Mild Character: Fast Aggravating: Nothing Alleviating: Nothing Associated Signs & Symptoms: Diaphoresis - Allergy/Home Medications Allergies/Adverse Reactions: Allergies Allergy/AdvReac Type Severity Reaction Status Date / Time No Known Allergies Allergy Verified 12/26/17 11:00 Home Medications: Home Medications Aspirin EC TAB* [Ecotrin EC Low Dose 81 MG*] 81 mg PO QAM 12/26/17 [History Confirmed 12/26/17] Clopidogrel TAB* [Plavix TAB*] 75 mg PO QAM 12/26/17 [History Confirmed 12/26/17 ] Dapagliflozin Propanediol [Farxiga] 10 mg PO QAM 12/26/17 [History Confirmed 09/10] Furosemide TAB* [Lasix TAB*] 40 mg PO QAM 12/26/17 [History Confirmed 12/26/17] HYDROcodone/ACETAMIN 5-325 MG* [Millmont 5-325 TAB*] 1 - 2 tab PO Q4H PRN MDD 12 tabs 12/26/17 [History Confirmed 12/26/17] Insulin GLARGINE(*) [Lantus(*)] 22 units SUBCUT QAM 12/26/17 [History Confirmed 12/26/17] Liraglutide [Victoza] 1.8 mg SUBCUT DAILY 12/26/17 [History Confirmed 12/26/17] Metoprolol Tartrate TAB* [Lopressor TAB*] 50 mg PO BID 12/26/17 [History Confirmed 12/26/17] Pioglitazone TAB* [Actos TAB*] 30 mg PO DAILY 12/26/17 [History Confirmed ] Potassium Chlor TAB* [Klor Con ER TAB*] 20 meq PO DAILY 12/26/17 [History Confirmed 12/26/17] Simvastatin (NF) [Zocor (NF)] 40 mg PO BEDTIME 12/26/17 [History Confirmed 12/26] glipiZIDE TAB* [Glucotrol TAB*] 10 mg PO BID AC 12/26/17 [History Confirmed 09/10] metFORMIN* [Glucophage 1000 MG TAB *] 1,000 mg PO BID 12/26/17 [History Confirmed 12/26/17] PMH/Surg Hx/FS Hx/Imm Hx Endocrine/Hematology History: Reports: Hx Diabetes - TYPE II Denies: Hx Anemia Cardiovascular History: Reports: Hx Angina, Hx Coronary Artery Disease - HIGH CHOLESTEROL; 3 STENTS [id number], Hx Hypercholesterolemia, Hx Myocardial Infarction - 2002, Other Cardiovascular Problems/Disorders - [employer]ER[employer] - [employer] - DR. NAVA Denies: Hx Hypertension, Hx Pacemaker/ICD Respiratory History: Denies: Hx Asthma, Hx Chronic Obstructive Pulmonary Disease (COPD) GI History: Denies: Hx Jaundice History: Reports: Hx Kidney Stones - NONE IN THE 5-6 YEARS Denies: Hx Renal Disease Sensory History: Denies: Hx Contacts or Glasses, Hx Deafness, Hx Hearing Aid Opthamlomology History: Denies: Hx Contacts or Glasses Psychiatric History: Denies: Hx Panic Disorder - Surgical History Surgery Procedure, Year, and Place: 2002-- STENTS (CARDIAC) - [place]. 2009- STENT(CARDIAC) [facility]. 2005 CYSTOSCOPY, LEFT RETROGRADE, URETEROSCOPY, LEFT CALCULUS MANIPULATION, STENT INSERTION, [facility] [place]. 09/2012 EXCISION MUCOUS CYST LEFT MIDDLE FINGER AND RECONSTRUCTION WITH DORSAL FLAP, [facility] [place] Hx Anesthesia Reactions: No Infectious Disease History: No Infectious Disease History: Denies: Traveled Outside the [place] in Last 30 Days - Family History Known Family History: Positive: Cardiac Disease, Other - [place] - Social History Alcohol Use: Rare Substance Use Type: Reports: None Smoking Status (MU): Former Smoker Type: Cigarettes Amount Used/How Often: 1 PPD FOR ABOUT 9 YEARS Length of Time of Smoking/Using Tobacco: 9 YEARS Have You Smoked in the Last Year: No Review of Systems Positive: Skin Diaphoresis. Negative: Fever Cardiovascular: Other - Elevated heart rate, now resolved Negative: Palpitations, Chest Pain Negative: Shortness Of Breath All Other Systems Reviewed And Are Negative: Yes Physical Exam - Summary Physical Exam Summary: Appearance: Well appearing, no pain distress Skin: warm, dry, reflects adequate perfusion. CABG dressing is clean, dry, and intact. Saphenous vein harvested on the left is clean, dry, and intact. Head/face: normal Eyes: EOMI, JAMES ENT: normal Neck: supple, non-tender Respiratory: CTA, breath sounds present Cardiovascular: Strong pulses. Pt is tachycardic but regular heart rate. No murmur. Abdomen: non-tender, soft Bowel: present Musculoskeletal: normal, strength/ROM intact. IV on right AC. Neuro: normal, sensory motor intact, A&Ox3 Triage Information Reviewed: Yes Vital Signs On Initial Exam: Initial Vitals Temp Pulse Resp BP Pulse Ox 98.2 F 104 19 103/67 95 12/26/17 10:57 12/26/17 10:57 12/26/17 10:57 12/26/17 10:57 12/26/17 10:57 Vital Signs Reviewed: Yes Diagnostics - Vital Signs Vital Signs Temp Pulse Resp BP Pulse Ox 12/26/17 10:57 98.2 F 104 19 103/67 95 - Laboratory Lab Results: Lab Results 12/26/17 12/26/17 12/26/17 Range/Units 11:31 11:31 11:45 WBC 7.5 (3.5-10.8) 10^3/ul RBC 3.64 L (4.00-5.40) 10^6/ul Hgb 10.2 L (14.0-18.0) g/dl Hct 31 L (42-52) % MCV 84 (80-94) fL MCH 28 (27-31) pg MCHC 33 (31-36) g/dl RDW 16 H (10.5-15) % Plt Count 270 (150-450) 10^3/ul MPV 8.2 (7.4-10.4) um3 Neut % (Auto) 78.4 (38-83) % Lymph % (Auto) 9.7 L (25-47) % Phelps % (Auto) 9.6 H (0-7) % Eos % (Auto) 1.8 (0-6) % Baso % (Auto) 0.5 (0-2) % Absolute Neuts (auto) 5.9 (1.5-7.7) 10^3/ul Absolute Lymphs (auto) 0.7 L (1.0-4.8) 10^3/ul Absolute Monos (auto) 0.7 (0-0.8) 10^3/ul Absolute Eos (auto) 0.1 (0-0.6) 10^3/ul Absolute Basos (auto) 0 (0-0.2) 10^3/ul Absolute Nucleated RBC 0 10^3/ul Nucleated RBC % 0 INR (Anticoag Therapy) 1.06 H (0.77-1.02) APTT 30.4 (26.0-36.3) seconds Sodium 137 (135-145) mmol/L Potassium 4.0 (3.5-5.0) mmol/L Chloride 100 L (101-111) mmol/L Carbon Dioxide 25 (22-32) mmol/L Anion Gap 12 H (2-11) mmol/L BUN 25 H (6-24) mg/dL Creatinine 1.33 H (0.67-1.17) mg/dL Est GFR ( Amer) 66.4 (>60) Est GFR (Non-Af Amer) 54.8 (>60) BUN/Creatinine Ratio 18.8 (8-20) Glucose 260 H (70-100) mg/dL Calcium 9.0 (8.6-10.3) mg/dL Total Bilirubin 0.50 (0.2-1.0) mg/dL AST 12 L (13-39) U/L ALT 12 (7-52) U/L Alkaline Phosphatase 34 (34-104) U/L Troponin I 0.21 H* (<0.04) ng/mL Total Protein 6.1 L (6.4-8.9) g/dL Albumin 3.2 (3.2-5.2) g/dL Globulin 2.9 (2-4) g/dL Albumin/Globulin Ratio 1.1 (1-3) Result Diagrams: 12/26/17 11:31 18 11:31 Lab Statement: Any lab studies that have been ordered have been reviewed, and results considered in the medical decision making process. - EKG 11:02 Cardiac Rate: Tachycardia - at 101 bpm EKG Rhythm: Sinus Tachycardia ST Segment: Non-Specific EKG Interpretation: Normal axis. Re-Evaluation - Re-Evaluation First Eval Change: Improved - Heart rate is down to the 90s. Patient remains asymptomatic here. Course/Dx - Course Course Of Treatment: Patient is 5 days post coronary artery bypass graft and had a short episode of anxious feeling today and was noted to have heart rate in the 200s by visiting nurse. It is unknown how this was checked. He presents with sinus tachycardia rate of 105. A small fluid bolus and a dose of metoprolol was given IV. His heart rate came down to the 90s. An echocardiogram was obtained after discussion with cardiology. The patient echo was not demonstrating any wall motion abnormality or effusion. His troponin is 0.2 which is thought to be acceptable by the systems support officer. His discharge in good condition. - Diagnoses Provider Diagnoses: Status post coronary artery bypass graft, Tachycardia - Physician Notifications Discussed Care Of Patient With: Wili Nava Time Discussed With Above Provider: 11:42 Instructed by Provider To: Other - I discussed pt care with Dr. Nava, systems support officer, who wants a troponin and echo. Discharge - Sign-Out/Discharge Documenting (check all that apply): Discharge/Admit/Transfer - Discharge - Discharge Plan Condition: Improved Disposition: HOME Patient Education Materials: Tachycardia (ED) Referrals: Robert Ron MD [Primary Care Provider] - Wili Nava MD [Medical Doctor] - Additional Instructions: Call today to follow up with the systems support officer in the office. Return with rapid heart beating, chest pain, new symptoms, worse or other concerns. - Billing Disposition and Condition Condition: IMPROVED Disposition: Home The documentation as recorded by the Liban bashir Angela accurately reflects the service I personally performed and the decisions made by , Carlos Webster MD.
--- NOTE | 2017-12-26 15:11 | ECHO ---
Patient: BRENDAN DANG [facility] Rec#: [id number] : 1955 Date: 12/26/2017 Age: 62y Height: 187.96 cm / 74.0 in Weight: 92.99 kg / 204.9 lbs Sex: M BSA: 2.2 Room#: -14 Admit Date#: 12/26/2017 Type: Inpatient Referring: Carlos Webster Reading: Wili Nava MD Mineral Surveying Technician: Alma Regalado BETSY CC: Robert Ron MD Transthoracic Echocardiogram Indication: CAD// 5 days post CABG BP: 118/74 HR: 91 Rhythm: NSR with PVCs Findings History: 5 days s/p CABGx5, HTN,DM,HLD,prior PCI,nonsmoker. Technical Comments: The study is technically limited due to poor acoustic windows. Definity used to enhance images. Left Ventricle: The left ventricular chamber size is normal. Mild concentric left ventricular hypertrophy is observed. Global left ventricular wall motion and contractility are within normal limits. There is normal left ventricular systolic function. The estimated ejection fraction is 55-60%. Post surgical hypokinesis of the interventricular septum is observed consistent with coronary artery bypass. Abnormal left ventricular diastolic function is observed. Left Atrium: The left atrial chamber size is normal. Right Ventricle: The right ventricular cavity size is normal. The right ventricular global systolic function is normal. The septum has abnormal paradoxical motion consistent with post-operative pressure. Right Atrium: The right atrial cavity size is normal. Aortic Valve: The aortic valve is trileaflet. There is no evidence of aortic valve thickening. There is no evidence of aortic regurgitation. There is no evidence of aortic stenosis. Mitral Valve: The mitral valve leaflets appear normal. There is a trace of mitral regurgitation. There is no evidence of mitral stenosis. Tricuspid Valve: The tricuspid valve leaflets are normal. There is no evidence of tricuspid valve regurgitation. Unable to estimate the right ventricular systolic pressure. There is no tricuspid stenosis. Pulmonic Valve: The pulmonic valve appears normal. There is trace to mild pulmonic regurgitation. There is no pulmonic stenosis. Pericardium: There is no pericardial effusion. A left pleural effusion is present. There is a moderate pleural effusion. Aorta: There is mild dilatation of the ascending aorta. There is no dilatation of the aortic arch. There is no dilation of the aortic root. Pulmonary Artery: The main pulmonary artery appears normal. Venous: The venous system is not well visualized. No subcostal view secondary to sore abdomin. Contrast: Definity was used to optimize study. A total of 3 ml used. Intravenous contrast was used to enhance endocardial border definition. Summary: There are no significant changes when compared to the previous study done on 12/14/17 Conclusions Mild concentric left ventricular hypertrophy is observed. Global left ventricular wall motion and contractility are within normal limits. The estimated ejection fraction is 55-60%. Post surgical hypokinesis of the interventricular septum is observed consistent with coronary artery bypass. The right ventricular global systolic function is normal. There is no evidence of aortic stenosis. There is a trace of mitral regurgitation. There is no evidence of tricuspid valve regurgitation. Unable to estimate the right ventricular systolic pressure. There is no pericardial effusion. There is a moderate pleural effusion. Measurements Name Value Normal Range RVIDd (AP) 2D 2.4 cm (0.9 - 2.6) RVDdMajor (2D) 3.1 cm (2.2 - 4.4) RAd ISD 4CH 4.8 cm (3.4 - 4.9) RA (A4C)W 2.8 cm (2.9 - 4.6) IVSd (2D) 1.1 cm (0.6 - 1) LVPWd (2D) 1.1 cm (0.6 - 1) LVIDd (2D) 4.3 cm (3.6 - 5.4) LVIDs (2D) 3.3 cm - LV FS (2D) 25 % (25 - 45) Aortic Annulus 2.1 cm (1.4 - 2.6) Ao root diameter (2D) 3.5 cm (2.1 - 3.5) Ascending Ao 3.5 cm (2.1 - 3.4) Aortic arch 2.8 cm (1.8 - 3.4) Descending Ao 0.5 cm - LA dimension (AP) 2D 3.5 cm (2.3 - 3.8) LAd ISD 4CH 5.3 cm (2.9 - 5.3) LA ISD 4CH W 3.7 cm (2.5 - 4.5) Name Value Normal Range LA ESV SP 4CH (A/L) 28 ml - LA ESV SP 2CH (A/L) 31 ml - LA ESV BP (A/L) 30 ml - LA ESV BP (A/L) index 13.74 ml/m2 - LA ESV SP 4CH (MOD) 28 ml - LA ESV SP 2CH (MOD) 29 ml - Name Value Normal Range MV E-wave Vmax 0.6 m/sec - MV deceleration time 202 msec - MV A-wave Vmax 0.8 m/sec - MV E:A ratio 0.77 ratio - LV septal e' Vmax 0.07 m/sec - LV lateral e' Vmax 0.09 m/sec - LV E:e' septal ratio 8.57 ratio - LV E:e' lateral ratio 6.67 ratio - Name Value Normal Range AV Vmax 1.4 m/sec - AV VTI 21.5 cm - AV peak gradient 7.66 mmHg - AV mean gradient 2.68 mmHg - LVOT Vmax 1.3 m/sec - LVOT VTI 22.2 cm - LVOT peak gradient 6.55 mmHg - LVOT mean gradient 2.85 mmHg - Name Value Normal Range PV Vmax 0.8 m/sec - PV peak gradient 2.65 mmHg -
== END 2017-12-26 13:35 | disposition home or self-care (01) ==
LOC: ED 10:48
DX: R00.0 Tachycardia, unspecified (principal); I25.10 Atherosclerotic heart disease of native coronary artery without angina pectoris; I25.2 Old myocardial infarction; E11.9 Type 2 diabetes mellitus without complications; E78.00 Pure hypercholesterolemia, unspecified; Z95.1 Presence of aortocoronary bypass graft; Z95.5 Presence of coronary angioplasty implant and graft; Z79.02 Long term (current) use of antithrombotics/antiplatelets; Z79.82 Long term (current) use of aspirin; Z79.84 Long term (current) use of oral hypoglycemic drugs; Z79.4 Long term (current) use of insulin; Z79.899 Other long term (current) drug therapy; Z87.891 Personal history of nicotine dependence
CPT/HCPCS: 36415; 80053; 84484; 85025; 85610; 85730; 93005; 93306; 96374; 99283; C8929; J3490

== ENCOUNTER → 2018-02-08 08:47 | Day surgery (SDC) | payer BC ==
[~2018-02-08 08:47] MED LIST: Lidocaine 1% INJ* 10 MG/ML 30 ML SDV ONE
--- NOTE | 2018-02-08 11:28 | RAD ---
Indication: Status post left thoracentesis. Single frontal view of the chest performed at 1105 hours was reviewed. Comparison is made with previous exam dated January 30, 2018. No mediastinal shift is noted. There is cardiomegaly noted. A small left pneumothorax is noted. Some atelectasis is noted. The right lung field is clear. Patient is status post changed sternal thoracotomy. IMPRESSION: STATUS POST LEFT THORACENTESIS WITH SMALL LEFT PNEUMOTHORAX.
--- NOTE | 2018-02-09 02:12 | OP ---
CC: Dr. Ron; Dr. Nava OPERATIVE REPORT: DATE OF OPERATION: 02/08/18 DATE OF : 59 SURGEON: Long Headley MD MACHINE PAN GREASER: None. ANESTHESIOLOGIST: None. PRE-OP DIAGNOSIS: Left pleural effusion. POST-OP DIAGNOSIS: Left pleural effusion. OPERATIVE PROCEDURE: Left posterior thoracentesis. DESCRIPTION OF PROCEDURE: The patient was sitting at the bedside table. The left chest was percuss ed and marked and antiseptic preparation was carried out. Sterile drapes placed. Local anesthetic w as used to anesthetize the area at approximately the 9th interspace and skinny needle identifies the pleural fluid. The thoracentesis catheter was then placed without difficulty. Suction bottles were used to retrieve the fluid in total about of over 3 L of fluid were obtained. It has the typical amb er bloody appearance. Specimens were sent for culture. He tolerated this with a vagal reaction. Hi s blood pressure fell a little bit, but we watched him for about 15 minutes and everything came back to perfectly normal. He was feeling great and was discharged home with instructions and we will be h appy to see him back in the office should the need arise. [id number]/[facility] #: [id number]
== END | disposition home or self-care (01) ==
LOC: OR 08:47
PROVIDERS: ATTEND Surgery
DX: I97.0 Postcardiotomy syndrome (principal); Z87.891 Personal history of nicotine dependence; Z95.1 Presence of aortocoronary bypass graft; Z95.5 Presence of coronary angioplasty implant and graft; E11.9 Type 2 diabetes mellitus without complications; Z79.4 Long term (current) use of insulin; Z79.84 Long term (current) use of oral hypoglycemic drugs
CPT/HCPCS: 32554; 36415; 71045; 83930; 87070; 87205; 89051